=== PATIENT | female | born 1965 | race African-American/Black ===

== ENCOUNTER 2018-06-29 16:42 | Inpatient (IN) | payer OTHER ==
--- NOTE | 2018-06-29 17:36 | PDOC ---
History of Present Illness - General Chief Complaint: Pain, Acute Stated Complaint: KNEE PAIN Time Seen by Provider: 06/29/18 17:36 - History of Present Illness Initial Comments: 52 yo F w a pmh of cholecystectomy, lap band, gastric bypass, malabsorption presents with L sided knee pain s/p tripping and falling down 4 stairs. She states she was able to walk normally up until yesterday when she tripped and fell. Her pain is the worst in the Medial aspect of the Left knee. She believes she everted her knee. She denies hitting her head or any LOC. Denies recent fevers, chills, infections. PCP: Shanthi Dietrich Social Hx: smokes .5 PPD, drinks beer recreationally, denies illicit substance use. Allergies: Celecoxib, vicodan Past History - Past Medical History Allergies/Adverse Reactions: Allergies Allergy/AdvReac Type Severity Reaction Status Date / Time celecoxib [From Celebrex] Allergy Unknown Verified 06/29/18 17:05 vicodan Allergy Unknown Uncoded 06/29/18 17:05 Home Medications: Ambulatory Orders Boniva PO 09/15/11 Citracal Plus Tablet 1 tab PO TID 09/15/11 Ferrex 150 Forte Capsule 1 tab PO DAILY 09/15/11 Motrin 400 mg PO BID PRN 09/15/11 Motrin 600 mg PO DAILY 09/15/11 Multivitamin 1 tab PO DAILY 09/15/11 Vitamin C 500 mg PO DAILY 09/15/11 Vitamin D3 1,000 mg PO DAILY 09/15/11 COPD: No CHF: No - Surgical History Abdominal Surgery: Yes (gastric lap band) Cholecystectomy: Yes - Suicide/Smoking/Psychosocial Hx Smoking History: Never smoked Have you smoked in the past 12 months: No Information on smoking cessation initiated: No Hx Alcohol Use: No Drug/Substance Use Hx: No Substance Use Type: None Review of Systems - Review of Systems Comments:: CONSTITUTIONAL: Absent: fever, no chills, no fatigue EYES: Absent: visual changes ENT: Absent: ear pain, no sore throat CARDIOVASCULAR: Absent: chest pain, no palpitations RESPIRATORY: Absent: cough, no SOB GI: Absent: abdominal pain, no nausea, no vomiting, no constipation, no diarrhea GENITOURINARY: Absent: dysuria, no frequency, no hematuria MUSKULOSKELETAL: Present: Arthralgia Absent: back pain, no myalgia SKIN: Absent: rash NEURO: Absent: headache *Physical Exam - Vital Signs Last Vital Signs Temp Pulse Resp BP Pulse Ox 98.0 F 90 16 114/62 100 06/29/18 16:42 06/29/18 16:42 06/29/18 16:42 06/29/18 16:42 06/29/18 16:42 - Physical Exam Comments: GENERAL: Well-appearing, well-nourished. No apparent distress. HEENT: Normocephalic, atraumatic. PERRL, EOM intact. CARDIOVASCULAR: Normal S1, S2. Regular rate and rhythm. PULMONARY: Clear to auscultation bilaterally. ABDOMEN: Soft, non-distended, non-tender. EXTREMITIES: There is significant TTP on the medial aspect of the Left knee. Normal sensation. 2+ pulses in L ankle. Normal ROM in other 3 extremities. No gross deformities. SKIN: Warm, dry. No rash NEUROLOGICAL: No focal neurological deficits. Medical Decision Making - Medical Decision Making 52 yo F w a pmh of cholecystectomy, lap band, gastric bypass, malabsorption presents with L sided knee pain s/p tripping and falling down 4 stairs. She has significant Medial L sided knee pain. DD includes but not limited to: Knee fx, ligament injury, septic knee, other injury Plan: X-ray, anaglesia, knee immobilizer, crutches, re-assess, Patient is not able to ambulate and in significant Knee pain. We will admit the patient for inability to ambulate and pain control. *DC/Admit/Observation/Transfer Diagnosis at time of Disposition: Inability to ambulate due to knee, Knee injury - Discharge Dispostion Decision to Admit order: Yes - Referrals Referrals: Shanthi Dietrich MD [Primary Care Provider] - - Patient Instructions - Post Discharge Activity
[2018-06-29] MEDS ORDERED: IBUPROFEN 600 MG TABLET (FP) PO ONE ×2 (17:51→17:59)
[2018-06-29] MEDS ORDERED: MAG HYDROX/AL HYDROX/SIMETH 30 ML UNIT-DOSE CUP PO ONE (22:03)
[2018-06-29] MEDS ORDERED: FAMOTIDINE 20 MG/50 ML IVPB 20 MG/50 ML MG IVPB ONE ×2 (22:03→22:33)
[2018-06-29] MEDS ORDERED: SODIUM CHLORIDE 0.9% 500 ML INFUS.BAG IV ONE (22:04)
[2018-06-29] MEDS ORDERED: MAG HYDROX/AL HYDROX/SIMETH 30 ML UNIT-DOSE CUP ONE (22:33)
--- NOTE | 2018-06-29 22:59 | PDOC ---
Attending Attestation - Resident Resident Name: ElisaSantino - ED Attending Attestation I have performed the following: I have examined & evaluated the patient, The case was reviewed & discussed with the resident, I agree w/resident's findings & plan, Exceptions are as noted - Physicial Exam PE: 06/29/18 22:57 awake alert head atraumatic. lungs clear bilaterally heart rrr no mrg. abd soft nt nd. ext wwp lower ext left knee ttp posterioirly. pt able to lift to resistance no tenderness over patella, pain with flexion extension. ankle nt from hip nt from. - Medical Decision Making 06/29/18 22:59 differerntial ligmentous injury, fx. plan xray pain control pt unable to walk. lives alone wiht son who is suffering form hernia, cant help lift. unable to use crutches will require admission because cant walk, pt assessment. possible ct knee /ro occult fracgure. <Nanda Phan - Last Filed: 06/29/18 22:56> - HPI HPI: 06/29/18 23:00 The patient is a 52 year old female with a significant past medical history of osteoporosis and anemia who presents to the ED s/p fall. Patient states she fell down 4 stairs yesterday and felt like she twisted her left knee. Patient complaints of left knee pain that is worsened with movement. Patient is able to ambulate with pain. Denies head injury. Denies loss of consciousness. Denies focal numbness/weakness /tingling. Denies fever or chills. Denies any other symptoms. <Kadie Nova - Last Filed: 06/29/18 23:00> Attestations - Attestations 06/29/18 23:00 Documentation prepared by Kadie Nova, acting as medical payment poster for Nanda Phan MD. <Kadie Nova - Last Filed: 06/29/18 23:00>
[2018-06-29 23:29] LABS: BASO % 0.2 % (0-2.0); EOS % 0.2 % (0-4.5); HEMATOCRIT 23.4 % (32.4-45.2); LYMPH % 8.7 % (8-40); MCH 21.7 pg (25.7-33.7); MEAN CELL VOLUME 72.3 fl (80-96); MEAN PLT VOLUME 8.3 fl (7.5-11.1); MONO % 6.6 % (3.8-10.2); NEUT % 84.3 % (42.8-82.8); PLATELET COUNT 374 K/MM3 (134-434); RBC 3.24 M/mm3 (3.60-5.2); RDW 21.5 % (11.6-15.6); WHITE BLOOD COUNT 8.4 K/mm3 (4.0-10.0)
[2018-06-29] MEDS ORDERED: ACETAMINOPHEN 325 MG TABLET (FP) PO PRN (23:58)
[2018-06-30 00:54] LABS: ALBUMIN 2.6 g/dl (3.4-5.0); ALK PHOS 96 U/L (45-117); ANION GAP 7 MMOL/L (8-16); BILIRUBIN,TOTAL 0.6 mg/dL (0.2-1); BLOOD UREA NITROGEN 9 mg/dL (7-18); CHLORIDE 112 mmol/L (98-107); CO2 24 mmol/L (21-32); CREATININE 0.4 mg/dL (0.55-1.3); GLUCOSE,RANDOM 86 mg/dL (74-106); POTASSIUM 3.8 mmol/L (3.5-5.1); SGOT/AST 24 U/L (15-37); SGPT/ALT 21 U/L (13-61); SODIUM 143 mmol/L (136-145); TOT PROT 6.1 g/dl (6.4-8.2)
[2018-06-30 01:52] LABS: CALCIUM 6.9 mg/dL (8.5-10.1)
[2018-06-30 03:02] LABS: ANISOCYTOSIS 3+; MACROCYTOSIS 0; OVALOCYTE 1+; PLATELET ESTIMATE NORMAL
[2018-06-30 05:42] VITALS: BMI 34.4
[2018-06-30 08:03] LABS: HEMATOCRIT 24.2 % (32.4-45.2); HEMOGLOBIN 7.1 GM/dL (10.7-15.3); MCH 21.8 pg (25.7-33.7); MCHC 29.5 g/dl (32.0-36.0); MEAN CELL VOLUME 73.8 fl (80-96); MEAN PLT VOLUME 8.9 fl (7.5-11.1); PLATELET COUNT 329 K/MM3 (134-434); RBC 3.28 M/mm3 (3.60-5.2); RDW 22.1 % (11.6-15.6); WHITE BLOOD COUNT 7.6 K/mm3 (4.0-10.0)
[2018-06-30 09:17] LABS: ALBUMIN 2.4 g/dl (3.4-5.0); ALK PHOS 92 U/L (45-117); ANION GAP 8 MMOL/L (8-16); BILIRUBIN,TOTAL 0.5 mg/dL (0.2-1); BLOOD UREA NITROGEN 8 mg/dL (7-18); CHLORIDE 112 mmol/L (98-107); CO2 23 mmol/L (21-32); CREATININE 0.4 mg/dL (0.55-1.3); GLUCOSE,RANDOM 63 mg/dL (74-106); POTASSIUM 3.4 mmol/L (3.5-5.1); SGOT/AST 16 U/L (15-37); SGPT/ALT 19 U/L (13-61); SODIUM 143 mmol/L (136-145); TOT PROT 5.7 g/dl (6.4-8.2)
--- NOTE | 2018-06-30 09:17 | EKG ---
Test Reason : Blood Pressure : / mmHG Vent. Rate : 072 BPM Atrial Rate : 072 BPM P-R Int : 188 ms QRS Dur : 106 ms QT Int : 424 ms P-R-T Axes : 054 016 027 degrees QTc Int : 464 ms NORMAL SINUS RHYTHM CANNOT RULE OUT ANTERIOR INFARCT , AGE UNDETERMINED ABNORMAL ECG NO PREVIOUS ECGS AVAILABLE Confirmed by OLLIE NGUYEN MD ([id number]) on 06/30/2018 9:16:38 AM Referred By: Confirmed By:OLLIE NGUYEN MD
--- NOTE | 2018-06-30 09:20 | HP ---
Admitting History and Physical - Primary Care Physician PCP: Mary Martin S - Admission Chief Complaint: L knee pain unable to walk History of Present Illness: 52 yo F w a pmh of cholecystectomy, lap band, gastric bypass, malabsorption presents with L sided knee pain s/p tripping and falling down 4 stairs. She states she was able to walk normally up until yesterday when she tripped and fell at work on stairs. Her pain is the worst in the Medial aspect of the Left knee. She believes she everted her knee. She denies hitting her head or any LOC. Denies recent fevers, chills, infections. PCP: Shanthi Dietrich History Source: Patient Limitations to Obtaining History: No Limitations - Past Medical History Heme/Onc: Yes: Anemia - Smoking History Smoking history: Never smoked Have you smoked in the past 12 months: No - Alcohol/Substance Use Hx Alcohol Use: No History of Substance Use: reports: None - Social History Usual Living Arrangement: Yes: Alone ADL: Independent History of Recent Travel: No Home Medications - Allergies Allergies/Adverse Reactions: Allergies Allergy/AdvReac Type Severity Reaction Status Date / Time celecoxib [From Celebrex] Allergy Unknown Verified 06/29/18 17:05 vicodan Allergy Unknown Uncoded 06/29/18 17:05 - Home Medications Home Medications: Ambulatory Orders Citracal Plus Tablet 1 tab PO TID 09/15/11 Ferrex 150 Forte Capsule 1 tab PO DAILY 09/15/11 Motrin 400 mg PO BID PRN 09/15/11 Motrin 600 mg PO DAILY 09/15/11 Multivitamin 1 tab PO DAILY 09/15/11 Vitamin C 500 mg PO DAILY 09/15/11 Vitamin D3 1,000 mg PO DAILY 09/15/11 Family Disease History - Family Disease History Family History: Unremarkable Review of Systems - Review of Systems Constitutional: denies: Chills, Fever Eyes: denies: Blind Spots, Blurred Vision, Double Vision HENT: denies: Ear Pain, Epistaxis Neck: denies: Stiffness, Tenderness Cardiovascular: denies: Chest Pain, Shortness of Breath Respiratory: denies: Cough, SOB Gastrointestinal: denies: Abdominal Pain, Constipation, Diarrhea, Rectal Bleeding, Vomiting Genitourinary: denies: Dysuria, Flank Pain Musculoskeletal: reports: Joint Pain (L knee). denies: Back Pain Integumentary: denies: Bruising, Eczema Neurological: denies: Change in LOC, Change in Speech, Confusion, Dizziness, Headache, Seizure, Syncope Hematology/Lymphatic: denies: Easily Bruised, Excessive Bleeding, Swollen Glands Psychiatric: denies: Altered Sleep Pattern, Anxiety, Depression, Suicidal Physical Examination Vital Signs: Vital Signs Temperature 98.3 F 06/30/18 06:00 Pulse Rate 76 06/30/18 06:00 Respiratory Rate 18 06/30/18 06:00 Blood Pressure 119/61 06/30/18 06:00 O2 Sat by Pulse Oximetry (%) 100 06/29/18 16:42 Constitutional: Yes: No Distress, Calm Eyes: Yes: Conjunctiva Clear HENT: Yes: Atraumatic Neck: Yes: Supple Cardiovascular: Yes: Regular Rate and Rhythm Respiratory: Yes: CTA Bilaterally Gastrointestinal: Yes: Soft. No: Distention, Tenderness Renal/: No: CVA Tenderness - Left, CVA Tenderness - Right Musculoskeletal: Yes: Joint Stiffness (L knee pain). No: Back Pain, Joint Swelling Extremities: No: Cold, Cool Edema: No Integumentary: No: Rash, Venous Stasis Changes Neurological: Yes: WNL, Alert, Oriented ...Motor Strength: WNL Psychiatric: Yes: WNL, Alert, Oriented. No: Agitated, Suicidal Ideation Labs: CBC, BMP 06/30/18 06:50 06/30/18 06:50 Imaging - Results Other: Report Reviewed Assessment/Plan 52 yo F w a pmh of cholecystectomy, lap band, gastric bypass, malabsorption presents with L sided knee pain s/p tripping and falling down 4 stairs. Xrays done, unable to r/o fracture per prelim report will check CT or MRI ortho eval anemia> d/w pt and dr Dietrich: pt has h/o anemia for years, in 2016 Hg 9 was supposed to have [facility] [employer] and GI w/u but pt did not go for them and did not see dr Patel since 2016 GI and heme eval DVT PFX pain meds prn falls PFX d/w pt do not get OOB alone call for help if needed; do not stap on LLE until cleared by ortho d/w pt and staff d/w pt's PCP dr Vikram Dietrich
--- NOTE | 2018-06-30 09:39 | CONSULT ---
Consult - text type - Consultation Consultation Note: FULL CONSULT DICTATED IMP: INTERNAL DERANGEMENT RIGHT KNEE PLAN: KNEE IMMOBILIZER, MRI ORDERED
--- NOTE | 2018-06-30 10:06 | CONS ---
DATE OF CONSULTATION: 06/30/2018 ORTHOPEDIC CONSULTATION/[facility] Patient is a 52-year-old female status post fall down stairs a day and a half ago, presented to ER yesterday complaining of increased pain in the left knee with inability to ambulate. Patient was admitted to the emergency room as the pain was too great for her to take care of herself and therefore needed to be admitted. PHYSICAL EXAMINATION: Patient has significant pain and swelling to her left knee. Difficult to examine due to the large size of the knee. Grossly, she is intact varus, valgus, and anterior, posterior. Cannot straight leg raise. I cannot palpate the inferior and superior aspect of the patella to ascertain quadriceps strength. I tried putting her on her side, tried to extend her knee, very uncooperative with the exam. She would not extend her knee. Calf was soft, nontender. Good motion of hip, ankle, and toes. X-ray shows no fracture. Patient . IMPRESSION: Internal derangement of left knee, possible extensor tendon rupture. PLAN: MRI and knee immobilizer. I will see her back after the MRI. ROSALIO PATEL M.D. [id number]
[2018-06-30] MEDS: CHOLECALCIFEROL (VITAMIN D3) 1,000 UNIT TABLET (FP) PO SCH (12:23)
[2018-06-30] MEDS: ASCORBIC ACID 500 MG TABLET (FP) PO SCH (12:23)
[2018-06-30] MEDS: MULTIVITAMINS (DAILY MVI) TABLET (FP) PO SCH (12:23)
[2018-06-30] MEDS: PANTOPRAZOLE 20 MG TABLET (FP) PO SCH (12:23)
[2018-06-30] MEDS: CALCIUM 500MG/VIT-D 200 UNITS COMBO TABLET (FP) PO SCH ×2 (15:00→21:20)
[2018-06-30] MEDS ORDERED: IRON POLYSACCHARIDES 150 MG CAPSULE PO SCH (16:00)
--- NOTE | 2018-06-30 16:06 | CON.GI ---
Consult Consult Specialty:: GI: Dr. Pastor for Dr. Valera Referred by:: Dr. Mary Martin Reason for Consultation:: Anemia - History of Present Illness Chief Complaint: I fell down stairs History of Present Illness: 52F admitted through [facility] S/P fall down stairs while at work this past tuesday. She denied lighheadedness/dizziness and states that she lost her footing. In the process, she hurt her left knee, knee pain persisted and she called EMS and was brought to the ER. She is being evaluated by ortho and has a left leg brace in place. She is scheduled for an MRI of the lower extremity. Asked to evaluate for anemia. ms. Brooks explains that she was told of anemia multiple years prior, predating her gastric bypass. She last saw her PMD Dr. Jonas 2 years ago, was supposed to have outpatient blood work but never did. She does not take iron supplementation s/p bypass and infrequently takes a multivitamin. She has been taking 6 motrin tablets daily for about a month due to knee pain. She denies unintentional weight loss, rectal bleeding, melena, abdominal pain. She is not compliant with a gastric bypass diet. She has not had a menstrual period in many years. She may have had an upper endoscopy multiple years ago and thinks she may have had a colonoscopy multiple years ago as well. She reports loose bowel movements chronically. There is no family history of colorectal cancer or other GI malignancy. - History Source History Provided By: Patient, Medical Record Limitations to Obtaining History: No Limitations - Past Medical History Heme/Onc: Yes: Anemia Additional Medical History: Obesity, venous insufficiency b/l LE - Past Surgical History Past Surgical History: Yes: Bariatric Surgery (Rodney-en-y gastric bypass, lap band), Cholecystectomy (Open) - Alcohol/Substance Use Hx Alcohol Use: No - Smoking History Smoking history: Never smoked Have you smoked in the past 12 months: No - Social History Usual Living Arrangement: With Child ADL: Independent Occupation: Direct service provider for developmentally challeneged Place of : [employer] History of Recent Travel: No Home Medications - Allergies Allergies/Adverse Reactions: Allergies Allergy/AdvReac Type Severity Reaction Status Date / Time celecoxib [From Celebrex] Allergy Unknown Verified 06/29/18 17:05 vicodan Allergy Unknown Uncoded 06/29/18 17:05 - Home Medications Home Medications: Ambulatory Orders Citracal Plus Tablet 1 tab PO TID 09/15/11 Ferrex 150 Forte Capsule 1 tab PO DAILY 09/15/11 Motrin 400 mg PO BID PRN 09/15/11 Motrin 600 mg PO DAILY 09/15/11 Multivitamin 1 tab PO DAILY 09/15/11 Vitamin C 500 mg PO DAILY 09/15/11 Vitamin D3 1,000 mg PO DAILY 09/15/11 Family Disease History - Family Disease History Family Disease History: Other: Father (: 51: Diabetic complications and PE) , Mother (: 72: complications fro URI), Brother (2, healthy), Sister (4, healthy), Son (1, healthy), Daughter (None) Other Family History: No family history of colorectal cancer or other GI malignancy Review of Systems - Review of Systems Constitutional: denies: Fever Cardiovascular: denies: Chest Pain Respiratory: denies: SOB Gastrointestinal: denies: Abdominal Pain, Melena Physical Exam-GI Vital Signs: Vital Signs Temperature 99.3 F 06/30/18 15:48 Pulse Rate 94 H 06/30/18 15:48 Respiratory Rate 18 06/30/18 15:48 Blood Pressure 115/40 L 06/30/18 15:48 O2 Sat by Pulse Oximetry (%) 100 06/29/18 16:42 Constitutional: Yes: Calm Eyes: No: Sclera Icterus Cardiovascular: Yes: Regular Rate and Rhythm, Murmur Respiratory: Yes: CTA Bilaterally Gastrointestinal Inspection: Yes: Scars (Oblique RUQ scar, + mid abd scar, + palpable lap band port in left paramedian abdomen) ...Auscultate: Yes: Normoactive Bowel Sounds ...Palpate: Yes: Soft. No: Hepatomegaly, Splenomegaly, Tenderness ...Rectal Exam: Yes: Other (No extermnal lesions, no masses, castro stool in rectal vault, guaiac negative) Edema: No (l stasis changes) Neurological: Yes: Alert Labs: CBC, BMP 06/30/18 06:50 06/30/18 06:50 Hepatic Panel Total Bilirubin 0.5 mg/dL (0.2-1) 06/30/18 06:50 AST 16 U/L (15-37) 06/30/18 06:50 ALT 19 U/L (13-61) 06/30/18 06:50 Alkaline Phosphatase 92 U/L (45-117) 06/30/18 06:50 Albumin 2.4 g/dl (3.4-5.0) L 06/30/18 06:50 Problem List - Problems (1) Anemia Assessment/Plan: Anemia: Microcytic Guaiac negative on exam without an overt bleeding history Suspect secondary to her gastric bypass and non compliance with iron supplemntation post bypass. We discussed options: discussed EGD/Colonoscopy while inpatient for tuesday to exclude intraluminal pathology that can contribute to anemia such as PUD, bleeding blood vessels, polyps, cancers of the intestinal tract such as colon cancer. We discussed potential risks of the procedure like but not limited to bleeding, perforation requiring surgery to repair, infection, sedation medication effects all of which could be potentially life threatening. She stated that she would like to wait and pursue this work-up when her acute issues are resolved. She is on iron now. consider PRBC transfusion, heme eval. Check iron studies. ? need for IV iron given bypass anatomy. I gave her my card for outpatient follow-up. Advised avoidance of NSAIDS. Continue Protonix 20mg once daily for now. Code(s): D64.9 - ANEMIA, UNSPECIFIED Qualifiers: Anemia type: unspecified type Qualified Code(s): D64.9 - Anemia, unspecified
--- NOTE | 2018-06-30 19:32 | CONSULT ---
Consult - text type - Consultation Consultation Note: 52F admitted S/P fall down stairs while at work this past tuesday. She denied lighheadedness/dizziness and states that she lost her footing. In the process, she hurt her left knee, knee pain persisted and she called EMS and was brought to the ER. She is being evaluated by ortho and has a left leg brace in place. She is scheduled for an MRI of the lower extremity. Asked to evaluate for anemia. ms. Brooks explains that she was told of anemia multiple years prior, predating her gastric bypass. s/p bypass. She denies unintentional weight loss, rectal bleeding, melena, abdominal pain. She may have had an upper endoscopy multiple years ago and thinks she may have had a colonoscopy multiple years ago as well. - History Source History Provided By: Patient, Medical Record - Past Medical History Heme/Onc: Yes: Anemia Additional Medical History: Obesity, venous insufficiency b/l LE - Past Surgical History Past Surgical History: Yes: Bariatric Surgery (Rodney-en-y gastric bypass, lap band), Cholecystectomy (Open) - Smoking History Smoking history: Never smoked - Allergies Allergies/Adverse Reactions: Allergies Allergy/AdvReac Type Severity Reaction Status Date / Time celecoxib [From Celebrex] Allergy Unknown Verified 06/29/18 17:05 vicodan Allergy Unknown Uncoded 06/29/18 17:05 - Home Medications Home Medications: Ambulatory Orders Citracal Plus Tablet 1 tab PO TID 09/15/11 Ferrex 150 Forte Capsule 1 tab PO DAILY 09/15/11 Motrin 400 mg PO BID PRN 09/15/11 Motrin 600 mg PO DAILY 09/15/11 Multivitamin 1 tab PO DAILY 09/15/11 Vitamin C 500 mg PO DAILY 09/15/11 Vitamin D3 1,000 mg PO DAILY 09/15/11 Family Disease History - Family Disease History Family Disease History: Other: Father (: 51: Diabetic complications and PE) , Mother (: 72: complications fro URI), Brother (2, healthy), Sister (4, healthy), Son (1, healthy), Daughter (None) Other Family History: No family history of colorectal cancer or other GI malignancy Vital Signs: Vital Signs Temperature 99.3 F 06/30/18 15:48 Pulse Rate 94 H 06/30/18 15:48 Respiratory Rate 18 06/30/18 15:48 Blood Pressure 115/40 L 06/30/18 15:48 O2 Sat by Pulse Oximetry (%) 100 06/29/18 16:42 Constitutional: Yes: Calm Eyes: No: Sclera Icterus Cardiovascular: Yes: Regular Rate and Rhythm, Murmur Respiratory: Yes: CTA Bilaterally Gastrointestinal Inspection: Yes: Scars (Oblique RUQ scar, + mid abd scar, + palpable lap band port in left paramedian abdomen) ...Auscultate: Yes: Normoactive Bowel Sounds Neurological: Yes: Alert Labs: Abnormal Lab Results 06/29/18 06/29/18 06/30/18 23:15 23:15 06:50 RBC 3.24 L 3.28 L Hgb 7.0 L 7.1 L Hct 23.4 L 24.2 L MCV 72.3 L 73.8 L MCH 21.7 L 21.8 L MCHC 30.0 L 29.5 L RDW 21.5 H 22.1 H Neutrophils % 84.3 H Potassium Chloride 112 H Anion Gap 7 L Creatinine 0.4 L Random Glucose Calcium 6.9 L* Total Protein 6.1 L Albumin 2.6 L 06/30/18 06:50 RBC Hgb Hct MCV MCH MCHC RDW Neutrophils % Potassium 3.4 L Chloride 112 H Anion Gap Creatinine 0.4 L Random Glucose 63 L Calcium 7.0 L Total Protein 5.7 L Albumin 2.4 L Active Medications Generic Name Dose Route Start Last Admin Trade Name Freq PRN Reason Stop Dose Admin Acetaminophen 650 mg 06/29/18 23:58 Tylenol - PO Q6H PRN PAIN 1-3 Ascorbic Acid 500 mg 06/30/18 10:00 06/30/18 12:23 Vitamin C - PO 500 mg DAILY [facility] Administration Calcium Carbonate/Cholecalciferol 1 tab 06/30/18 14:00 06/30/18 15:00 Os-Elio 500+D - PO 1 tab TID CEDRIC Administration Cholecalciferol 1,000 unit 06/30/18 11:15 06/30/18 12:23 Vitamin D3 - PO 1,000 unit DAILY [facility]RIC Administration Heparin Sodium (Porcine) 5,000 unit 06/30/18 22:00 Heparin - SQ BID CEDRIC Ibuprofen 400 mg 06/30/18 09:19 Motrin - PO BID PRN NEED PAIN LEVEL Multivitamins/Minerals/Vitamin C 1 tab 06/30/18 10:00 06/30/18 12:23 Tab-A-Vit - PO 1 tab DAILY [facility]RIC Administration Pantoprazole Sodium 20 mg 06/30/18 11:15 06/30/18 12:23 Protonix - PO 20 mg DAILY [facility] Administration Polysaccharide Iron Complex 150 mg 06/30/18 16:00 06/30/18 17:40 Niferex-150 - PO Not Given DAILY CEDRIC A/P 52 y/o with h/o obesity, s/p gastric bypass in 2000, s/p lap band Microcytic anemia h/o gastric bypass supect poor iron absorption ? losses check iron studies/B12/folate/TSH/fT4 will dose iv iron --poor absorption given gastric bypass. discussed rare anaphylactic reactins with iv iron will need gi w/u will need fresh work wrapper layer f/u as outpatient. reports regular normal periods but needs screening will need screening mammogram discussed these recommendations with patient in great detail and urged her to follow up My contact no. given
[2018-06-30] MEDS: HEPARIN NA (PORCINE) 5,000 UNITS/ML 1ML VIAL SQ SCH (21:20)
[2018-07-01] MEDS: CALCIUM 500MG/VIT-D 200 UNITS COMBO TABLET (FP) PO SCH ×3 (05:31→21:09)
[2018-07-01] MEDS: IBUPROFEN 400 MG TABLET (FP) PO PRN ×2 (05:36→17:07)
[2018-07-01 08:27] LABS: RETICULOCYTES 1.45 % (0.5-1.5)
[2018-07-01 08:28] LABS: BASO % 0.2 % (0-2.0); EOS % 0.6 % (0-4.5); HEMATOCRIT 23.7 % (32.4-45.2); HEMOGLOBIN 7.2 GM/dL (10.7-15.3); LYMPH % 12.6 % (8-40); MCH 21.7 pg (25.7-33.7); MCHC 30.2 g/dl (32.0-36.0); MEAN PLT VOLUME 9.2 fl (7.5-11.1); NEUT % 78.6 % (42.8-82.8); PLATELET COUNT 341 K/MM3 (134-434); RBC 3.29 M/mm3 (3.60-5.2); RDW 21.7 % (11.6-15.6); WHITE BLOOD COUNT 6.8 K/mm3 (4.0-10.0)
--- NOTE | 2018-07-01 08:45 | PN ---
Progress Note, Physician Chief Complaint: events noted no overt bleeding start IV Iron for anemia MRI knee pending - Current Medication List Current Medications: Active Medications Acetaminophen (Tylenol -) 650 mg PO Q6H PRN PRN Reason: PAIN 1-3 Ascorbic Acid (Vitamin C -) 500 mg PO DAILY [facility] Last Admin: 06/30/18 12:23 Dose: 500 mg Calcium Carbonate/Cholecalciferol (Os-Elio 500+D -) 1 tab PO TID [facility] Last Admin: 07/01/18 05:31 Dose: 1 tab Cholecalciferol (Vitamin D3 -) 1,000 unit PO DAILY [facility] Last Admin: 06/30/18 12:23 Dose: 1,000 unit Heparin Sodium (Porcine) (Heparin -) 5,000 unit SQ BID [facility] Last Admin: 06/30/18 21:20 Dose: 5,000 unit Iron Sucrose 200 mg/ Sodium (Chloride) 100 mls @ 100 mls/hr IVPB ONCE ONE Stop: 07/01/18 10:59 Ibuprofen (Motrin -) 400 mg PO Q12H PRN PRN Reason: PAIN LEVEL 4 - 6 Last Admin: 07/01/18 05:36 Dose: 400 mg Multivitamins/Minerals/Vitamin C (Tab-A-Vit -) 1 tab PO DAILY [facility] Last Admin: 06/30/18 12:23 Dose: 1 tab Pantoprazole Sodium (Protonix -) 20 mg PO DAILY [facility] Last Admin: 06/30/18 12:23 Dose: 20 mg - Objective Vital Signs: Vital Signs Temperature 99.2 F 07/01/18 06:00 Pulse Rate 83 07/01/18 06:00 Respiratory Rate 18 06/30/18 23:38 Blood Pressure 119/60 07/01/18 06:00 O2 Sat by Pulse Oximetry (%) 95 06/30/18 22:00 Constitutional: Yes: No Distress, Calm Eyes: Yes: Conjunctiva Clear HENT: Yes: Atraumatic Neck: Yes: Supple Cardiovascular: Yes: Regular Rate and Rhythm Respiratory: Yes: CTA Bilaterally Gastrointestinal: Yes: Soft. No: Distention Genitourinary: No: CVA Tenderness - Left, CVA Tenderness - Right Extremities: Yes: Other (L knee pain) Integumentary: No: Rash, Venous Stasis Changes Neurological: Yes: WNL, Alert, Oriented ...Motor Strength: WNL Psychiatric: Yes: WNL, Alert, Oriented. No: Agitated, Suicidal Ideation - ....Imaging Other: Report Reviewed Assessment/Plan 52 yo F w a pmh of cholecystectomy, lap band, gastric bypass, malabsorption presents with L sided knee pain s/p tripping and falling down 4 stairs. Xrays done, unable to r/o fracture per prelim report will check CT or MRI ortho eval anemia> d/w pt and dr Dietrich: pt has h/o anemia for years, in 2015 Hg 9 was supposed to have [facility] ASSOC[facility] and GI w/u but pt did not go for them and did not see dr Dietrich since 2016 GI and heme eval DVT PFX pain meds prn falls PFX d/w pt do not get OOB alone call for help if needed; do not stap on LLE until cleared by ortho d/w pt and staff d/w pt's PCP dr Vikram Dietrich
[2018-07-01 08:48] LABS: ALBUMIN 2.4 g/dl (3.4-5.0); ALK PHOS 96 U/L (45-117); ANION GAP 7 MMOL/L (8-16); BILIRUBIN,TOTAL 0.7 mg/dL (0.2-1); BLOOD UREA NITROGEN 6 mg/dL (7-18); CHLORIDE 111 mmol/L (98-107); CO2 26 mmol/L (21-32); CREATININE 0.4 mg/dL (0.55-1.3); GLUCOSE,RANDOM 72 mg/dL (74-106); LDH 289 U/L (84-246); POTASSIUM 3.8 mmol/L (3.5-5.1); SGOT/AST 14 U/L (15-37); SGPT/ALT 19 U/L (13-61); SODIUM 143 mmol/L (136-145); TOT PROT 5.7 g/dl (6.4-8.2)
[2018-07-01] MEDS ORDERED: IRON SUCROSE INJECTION 200 MG in SODIUM CHLORIDE 90 ML IVPB ONE (10:00)
[2018-07-01] MEDS ORDERED: PT OWN MED DRAWER 7, Y5N ONE ×2 (10:44→17:26)
[2018-07-01] MEDS: ASCORBIC ACID 500 MG TABLET (FP) PO SCH (10:54)
[2018-07-01] MEDS: MULTIVITAMINS (DAILY MVI) TABLET (FP) PO SCH (10:54)
[2018-07-01] MEDS: HEPARIN NA (PORCINE) 5,000 UNITS/ML 1ML VIAL SQ SCH ×2 (10:54→21:09)
[2018-07-01] MEDS: PANTOPRAZOLE 20 MG TABLET (FP) PO SCH (10:54)
[2018-07-01] MEDS: CHOLECALCIFEROL (VITAMIN D3) 1,000 UNIT TABLET (FP) PO SCH (10:54)
[2018-07-02] MEDS: CALCIUM 500MG/VIT-D 200 UNITS COMBO TABLET (FP) PO SCH ×3 (05:40→21:20)
[2018-07-02 08:33] LABS: BASO % 0.6 % (0-2.0); EOS % 1.4 % (0-4.5); HEMATOCRIT 25.8 % (32.4-45.2); HEMOGLOBIN 7.8 GM/dL (10.7-15.3); LYMPH % 16.6 % (8-40); MCH 21.8 pg (25.7-33.7); MCHC 30.1 g/dl (32.0-36.0); MEAN CELL VOLUME 72.5 fl (80-96); MEAN PLT VOLUME 9.1 fl (7.5-11.1); MONO % 8.7 % (3.8-10.2); NEUT % 72.7 % (42.8-82.8); PLATELET COUNT 352 K/MM3 (134-434); RBC 3.56 M/mm3 (3.60-5.2); RDW 22.3 % (11.6-15.6); WHITE BLOOD COUNT 5.7 K/mm3 (4.0-10.0)
--- NOTE | 2018-07-02 08:34 | PN ---
Progress Note, Physician Chief Complaint: in bed, no new c/o, still with L knee pain MRI d/w pt comminutive fracture - might need surgery will do preop eval and tune up last BM 3-4 days ago pt does not want any stools softeners - Current Medication List Current Medications: Active Medications Acetaminophen (Tylenol -) 650 mg PO Q6H PRN PRN Reason: PAIN 1-3 Ascorbic Acid (Vitamin C -) 500 mg PO DAILY [facility] Last Admin: 07/01/18 10:54 Dose: 500 mg Calcium Carbonate/Cholecalciferol (Os-Elio 500+D -) 1 tab PO TID [facility] Last Admin: 07/02/18 05:40 Dose: 1 tab Cholecalciferol (Vitamin D3 -) 1,000 unit PO DAILY [facility] Last Admin: 07/01/18 10:54 Dose: 1,000 unit Heparin Sodium (Porcine) (Heparin -) 5,000 unit SQ BID [facility] Last Admin: 07/01/18 21:09 Dose: 5,000 unit Ibuprofen (Motrin -) 400 mg PO Q12H PRN PRN Reason: PAIN LEVEL 4 - 6 Last Admin: 07/01/18 17:07 Dose: 400 mg Multivitamins/Minerals/Vitamin C (Tab-A-Vit -) 1 tab PO DAILY [facility] Last Admin: 07/01/18 10:54 Dose: 1 tab Pantoprazole Sodium (Protonix -) 20 mg PO DAILY [facility] Last Admin: 07/01/18 10:54 Dose: 20 mg - Objective Vital Signs: Vital Signs Temperature 97.9 F 07/02/18 06:00 Pulse Rate 79 07/02/18 06:00 Respiratory Rate 20 07/02/18 06:00 Blood Pressure 135/68 07/02/18 06:00 O2 Sat by Pulse Oximetry (%) 95 07/01/18 21:00 Constitutional: Yes: No Distress, Calm Eyes: Yes: Conjunctiva Clear HENT: Yes: Atraumatic Neck: Yes: Supple Cardiovascular: Yes: Regular Rate and Rhythm Respiratory: Yes: CTA Bilaterally Gastrointestinal: Yes: Soft. No: Distention Genitourinary: No: CVA Tenderness - Left, CVA Tenderness - Right Musculoskeletal: Yes: Joint Stiffness Extremities: No: Calf Tenderness, Cold, Cool Edema: No Integumentary: No: Rash, Venous Stasis Changes Neurological: Yes: WNL, Alert, Oriented ...Motor Strength: WNL Psychiatric: Yes: WNL, Alert, Oriented. No: Agitated, Suicidal Ideation - ....Imaging Other: Report Reviewed Assessment/Plan 52 yo F w a pmh of cholecystectomy, lap band, gastric bypass, malabsorption presents with L sided knee pain s/p tripping and falling down 4 stairs. MRI c/w L knee comminutive plateau fracture, further tx per ortho anemia> iv iron, might need transfusion - to have Hg >8 if will go for surgery abNL EKG: cardio eval in case she needs surgery GI and heme f/u will need PUBLIC AFFAIRS OFFICER outpt -w/u d/w pt DVT PFX pain meds prn falls PFX d/w pt do not get OOB alone call for help if needed; do not step on LLE until cleared by ortho d/w pt and staff
[2018-07-02] MEDS ORDERED: ACETAMINOPHEN 325 MG TABLET (FP) PO PRN (08:35)
[2018-07-02 08:57] LABS: ALBUMIN 2.6 g/dl (3.4-5.0); ALK PHOS 109 U/L (45-117); ANION GAP 8 MMOL/L (8-16); BILIRUBIN,TOTAL 0.4 mg/dL (0.2-1); BLOOD UREA NITROGEN 6 mg/dL (7-18); CALCIUM 7.4 mg/dL (8.5-10.1); CHLORIDE 110 mmol/L (98-107); CO2 25 mmol/L (21-32); CREATININE 0.4 mg/dL (0.55-1.3); GLUCOSE,RANDOM 71 mg/dL (74-106); POTASSIUM 3.7 mmol/L (3.5-5.1); SGOT/AST 18 U/L (15-37); SGPT/ALT 19 U/L (13-61); SODIUM 142 mmol/L (136-145); TOT PROT 6.4 g/dl (6.4-8.2)
[2018-07-02] MEDS ORDERED: MAG HYDROX/AL HYDROX/SIMETH 30 ML UNIT-DOSE CUP PO PRN (09:42)
[2018-07-02] MEDS: CHOLECALCIFEROL (VITAMIN D3) 1,000 UNIT TABLET (FP) PO SCH (10:28)
[2018-07-02] MEDS: HEPARIN NA (PORCINE) 5,000 UNITS/ML 1ML VIAL SQ SCH ×2 (10:28→21:20)
[2018-07-02] MEDS: PANTOPRAZOLE 20 MG TABLET (FP) PO SCH (10:28)
[2018-07-02] MEDS: MULTIVITAMINS (DAILY MVI) TABLET (FP) PO SCH (10:28)
[2018-07-02] MEDS: ASCORBIC ACID 500 MG TABLET (FP) PO SCH (10:28)
--- NOTE | 2018-07-02 10:45 | CON.CARD ---
Cardiology Consult (text) - Consultation Consultation Note: cc: knee pain hpi: 52 f hx gastric bypass, anemia here with knee pain. Pt had mechanical fall on stairs and hit knee and chest and face. Since then has knee pain and also mild achey cp across chest, mostly right side, worse with deep breaths/ coughs/palpation. No hx hrt dz, no anginal sxs. No sob palps dizzy loc pnd orthopnea le edema. Possible knee surgery planned for fracture. pmh: per hpi psh: per hpi social: no tob fam: no premature cad, scd ros: per hpi; no nvd fever abd pain gib hematuria dysuria muscle pain, vision changes meds: Home Medications Medication Instructions Recorded Citracal Plus Tablet 1 tab PO TID 09/15/11 Ferrex 150 Forte Capsule 1 tab PO DAILY 09/15/11 Motrin 400 mg PO BID PRN 09/15/11 Motrin 600 mg PO DAILY 09/15/11 Multivitamin 1 tab PO DAILY 09/15/11 Vitamin C 500 mg PO DAILY 09/15/11 Vitamin D3 1,000 mg PO DAILY 09/15/11 pe: Vital Signs Period Temp Pulse Resp BP Sys/Gandara Pulse Ox Last 24 Hr 97.9 F-99.2 F 79-86 18-20 115-145/64-75 95 nad no jvd rrr s1s2 no mrg cta bl nl eff aao3 no le e/c/c abd nt nd pos bs no jaundice diaphoresis pos dp pt no carotid bruits +chest wall tenderness Laboratory Last Values WBC 5.7 K/mm3 (4.0-10.0) 07/02/18 08:17 RBC 3.56 M/mm3 (3.60-5.2) L 07/02/18 08:17 Hgb 7.8 GM/dL (10.7-15.3) L 07/02/18 08:17 Hct 25.8 % (32.4-45.2) L 07/02/18 08:17 MCV 72.5 fl (80-96) L 07/02/18 08:17 MCH 21.8 pg (25.7-33.7) L 07/02/18 08:17 MCHC 30.1 g/dl (32.0-36.0) L 07/02/18 08:17 RDW 22.3 % (11.6-15.6) H 07/02/18 08:17 Plt Count 352 K/MM3 (134-434) 07/02/18 08:17 MPV 9.1 fl (7.5-11.1) 07/02/18 08:17 Absolute Neuts (auto) 4.1 K/mm3 (1.5-8.0) 07/02/18 08:17 Neutrophils % 72.7 % (42.8-82.8) 07/02/18 08:17 Lymphocytes % 16.6 % (8-40) D 07/02/18 08:17 Monocytes % 8.7 % (3.8-10.2) 07/02/18 08:17 Eosinophils % 1.4 % (0-4.5) D 07/02/18 08:17 Basophils % 0.6 % (0-2.0) 07/02/18 08:17 Nucleated RBC % 0 % (0-0) 07/02/18 08:17 Hypochromia 3+ 06/29/18 23:15 Platelet Estimate Normal 06/29/18 23:15 Polychromasia 0 06/29/18 23:15 Poikilocytosis 2+ 06/29/18 23:15 Anisocytosis 3+ 06/29/18 23:15 Microcytosis 3+ 06/29/18 23:15 Macrocytosis 0 06/29/18 23:15 Ovalocytes 1+ 06/29/18 23:15 ESR 40 mm/hr (0-30) H 07/01/18 07:30 Retic Count 1.45 % (0.5-1.5) 07/01/18 07:30 Sodium 142 mmol/L (136-145) 07/02/18 08:17 Potassium 3.7 mmol/L (3.5-5.1) 07/02/18 08:17 Chloride 110 mmol/L (98-107) H 07/02/18 08:17 Carbon Dioxide 25 mmol/L (21-32) 07/02/18 08:17 Anion Gap 8 MMOL/L (8-16) 07/02/18 08:17 BUN 6 mg/dL (7-18) L 07/02/18 08:17 Creatinine 0.4 mg/dL (0.55-1.3) L 07/02/18 08:17 Creat Clearance w eGFR > 60 (>60) 07/02/18 08:17 Random Glucose 71 mg/dL (74-106) L 07/02/18 08:17 Calcium 7.4 mg/dL (8.5-10.1) L 07/02/18 08:17 Ferritin 45.2 ng/ml (8-388) 07/01/18 07:30 Total Bilirubin 0.4 mg/dL (0.2-1) 07/02/18 08:17 AST 18 U/L (15-37) 07/02/18 08:17 ALT 19 U/L (13-61) 07/02/18 08:17 Alkaline Phosphatase 109 U/L (45-117) 07/02/18 08:17 LD Total 289 U/L (84-246) H 07/01/18 07:30 C-Reactive Protein 7.3 MG/DL (0.00-0.3) H 07/01/18 07:30 Total Protein 6.4 g/dl (6.4-8.2) 07/02/18 08:17 Albumin 2.6 g/dl (3.4-5.0) L 07/02/18 08:17 [id number] (%) Cancelled 07/01/18 07:30 Srbfb-[id number] (%) Cancelled 07/01/18 07:30 Beta Globulins (%) Cancelled 07/01/18 07:30 Gamma Globulins (%) Cancelled 07/01/18 07:30 M-Piter % Cancelled 07/01/18 07:30 Vitamin B12 457 pg/ml (193-986) 07/01/18 07:30 TSH 2.21 uIU/ml (0.358-3.74) 07/01/18 07:30 Free T4 1.67 ng/dl (0.76-1.46) H 07/01/18 07:30 Ref Test Comments Cancelled 07/01/18 07:30 ecg: sr, nl intervals, no ischemic changes cxr: clear lungs a/p: 52 f hx gastric bypass, anemia here with knee pain. anemia: -likely due to poor absorption s/p gastric bypass and pt not taking her supplements -gi, heme following cp: -MSK s/p fall, no suggestion of cardiac etiology knee injury, preop: -possible surgery per ortho -Pt has no cardiac symptoms, no unstable cardiac issues. She has low risk of periop cardiac events for the planned knee surgery.
--- NOTE | 2018-07-02 14:31 | PN ---
Progress Note (short form) - Note Progress Note: Pt seen and examined. Her LLE is in a knee immobilizer. She is comfortable. Xrays and MRI show a moderately depresse, comminuted left tibial plateau fracture. LLE NVI ` No severe swelling Imp Left lateral tibial plateau fracture, with some depression and comminution. Rec I will discuss with Dr Hamilton tomorrow/Tuesday, for definitive treatment plan : surgery vs conservative treatment NPO after midnight tonight in case surgery is indicated
[2018-07-02] MEDS: oxyCODONE HCL 5 MG TABLET PO PRN ×2 (19:16→23:25)
[2018-07-02 22:36] LABS: URINE APPEARANCE CLOUDY; URINE BILIRUBIN NEGATIVE (<2.0 mg/dL); URINE COLOR DKYELLOW; URINE GLUCOSE (UA) NEGATIVE (NEGATIVE); URINE KETONE NEGATIVE (NEGATIVE); URINE LEUK ESTERASE TRACE (NEGATIVE); URINE NITRITE NEGATIVE (NEGATIVE); URINE PROTEIN NEGATIVE (NEGATIVE); URINE UROBILINOGEN 4.0 E.U/dl mg/dL (0.2-1.0)
[2018-07-02 22:40] LABS: EPI CELLS MANY /HPF (FEW); URINE BACTERIA MODERATE /hpf (NONE SEEN); URINE MUCUS FEW
[2018-07-03 00:06] LABS: SERUM IRON SATURATION 5 % (15-55); TOTAL IRON BINDING CAPACITY 241 ug/dL (250-450); UIBC 228 ug/dL (131-425)
[2018-07-03] MEDS: CALCIUM 500MG/VIT-D 200 UNITS COMBO TABLET (FP) PO SCH ×3 (05:45→21:22)
[2018-07-03 07:55] LABS: BASO % 0.6 % (0-2.0); EOS % 2.1 % (0-4.5); HEMATOCRIT 24.1 % (32.4-45.2); HEMOGLOBIN 7.5 GM/dL (10.7-15.3); LYMPH % 23.2 % (8-40); MCH 22.5 pg (25.7-33.7); MCHC 31.1 g/dl (32.0-36.0); MEAN CELL VOLUME 72.4 fl (80-96); MEAN PLT VOLUME 9.1 fl (7.5-11.1); MONO % 10.7 % (3.8-10.2); NEUT % 63.4 % (42.8-82.8); PLATELET COUNT 338 K/MM3 (134-434); RBC 3.33 M/mm3 (3.60-5.2); WHITE BLOOD COUNT 5.4 K/mm3 (4.0-10.0)
[2018-07-03 08:17] LABS: ALBUMIN 2.4 g/dl (3.4-5.0); ALK PHOS 102 U/L (45-117); ANION GAP 5 MMOL/L (8-16); BILIRUBIN,TOTAL 0.6 mg/dL (0.2-1); BLOOD UREA NITROGEN 6 mg/dL (7-18); CALCIUM 7.4 mg/dL (8.5-10.1); CHLORIDE 108 mmol/L (98-107); CO2 28 mmol/L (21-32); CREATININE 0.4 mg/dL (0.55-1.3); GLUCOSE,RANDOM 72 mg/dL (74-106); POTASSIUM 3.9 mmol/L (3.5-5.1); SGOT/AST 14 U/L (15-37); SGPT/ALT 17 U/L (13-61); SODIUM 141 mmol/L (136-145); TOT PROT 6.1 g/dl (6.4-8.2)
[2018-07-03 08:18] LABS: INR 1.1 (0.83-1.09)
[2018-07-03 08:20] LABS: ACTIVATED PTT 27.6 SECONDS (25.2-36.5)
--- NOTE | 2018-07-03 09:02 | PN ---
Progress Note (short form) - Note Progress Note: Ortho Pt seen and examined s/p left lateral tibial plateau fx Selected Entries 07/03/18 06:00 Temperature 98.6 F Pulse Rate 80 Respiratory 20 Rate Blood Pressure 98/62 + swelling, + ttp laterally, decr rom secondary to pain nvi a/p Risks and benefits were d/w pt in detail OR today for left lateral tibial plateau ORIF surgical clearance NPO OR this afternoon d/w Dr. Hamilton
--- NOTE | 2018-07-03 09:22 | PN ---
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 GI bleed Hg 7.5 received IV Iron will transfuse 2 U PRBC before sx d/w pt possible risks and SE she agreed with transfusion CXR cardiomegaly - asymptomatic; cleared by cardio for surgery - Current Medication List Current Medications: Active Medications Acetaminophen (Tylenol -) 650 mg PO Q6H PRN PRN Reason: PAIN 1-3 Acetaminophen (Tylenol -) 325 mg PO BID PRN PRN Reason: PAIN LEVEL 7 - 10 Last Admin: 07/02/18 23:24 Dose: 325 mg Al Hydroxide/Mg Hydroxide (Mylanta Oral Suspension -) 30 ml PO Q6H PRN PRN Reason: DYSPEPSIA Ascorbic Acid (Vitamin C -) 500 mg PO DAILY [facility] Last Admin: 07/02/18 10:28 Dose: 500 mg Calcium Carbonate/Cholecalciferol (Os-Elio 500+D -) 1 tab PO TID [facility] Last Admin: 07/03/18 05:45 Dose: Not Given Cholecalciferol (Vitamin D3 -) 1,000 unit PO DAILY [facility] Last Admin: 07/02/18 10:28 Dose: 1,000 unit Heparin Sodium (Porcine) (Heparin -) 5,000 unit SQ BID [facility] Last Admin: 07/02/18 21:20 Dose: 5,000 unit Multivitamins/Minerals/Vitamin C (Tab-A-Vit -) 1 tab PO DAILY [facility] Last Admin: 07/02/18 10:28 Dose: 1 tab Oxycodone HCl (Roxicodone -) 5 mg PO BID PRN PRN Reason: PAIN LEVEL 7 - 10 Last Admin: 07/02/18 23:25 Dose: 5 mg Pantoprazole Sodium (Protonix -) 20 mg PO DAILY [facility] Last Admin: 07/02/18 10:28 Dose: 20 mg - Objective Vital Signs: Vital Signs Temperature 98.6 F 07/03/18 06:00 Pulse Rate 80 07/03/18 06:00 Respiratory Rate 20 07/03/18 06:00 Blood Pressure 98/62 07/03/18 06:00 O2 Sat by Pulse Oximetry (%) 95 07/02/18 21:00 Constitutional: Yes: No Distress, Calm Eyes: Yes: Conjunctiva Clear HENT: Yes: Atraumatic Neck: Yes: Supple Cardiovascular: Yes: Regular Rate and Rhythm Respiratory: Yes: CTA Bilaterally Gastrointestinal: Yes: Soft. No: Distention Genitourinary: No: CVA Tenderness - Left, CVA Tenderness - Right Musculoskeletal: No: Joint Swelling Extremities: No: Calf Tenderness, Cold, Cool, Cyanosis Edema: No Integumentary: No: Rash, Venous Stasis Changes Neurological: Yes: WNL, Alert, Oriented ...Motor Strength: WNL Psychiatric: Yes: WNL, Alert, Oriented. No: Agitated, Suicidal Ideation Labs: CBC, BMP 07/03/18 07:15 07/03/18 07:15 INR, PTT INR 1.10 (0.83-1.09) H 07/03/18 07:15 - ....Imaging Other: Report Reviewed Assessment/Plan 52 yo F w a pmh of cholecystectomy, lap band, gastric bypass, malabsorption presents with L sided knee pain s/p tripping and falling down 4 stairs at work MRI c/w L knee comminutive plateau fracture, further tx per ortho - surgery today - pt agreed anemia> iv iron, might need transfusion - to have Hg >8 if will go for surgery, transfuse 2 U PRBC now d/w pt and staff abNL EKG, cardiomegaly / CXR : seen by cardio and cleared for surgery NPO this am; hold sq heparin this am for knee surgery this afternoon no absolute CI for the proposed surgery GI and heme f/u and anemia - will need f/u with them outpt and also will need CLEANING PROFESSIONAL outpt -w/u d/w pt DVT PFX pain meds prn falls PFX d/w pt do not get OOB alone call for help if needed; do not step on LLE until cleared by ortho seen by telephonic nurse case manager for insurance and SNF planning d/w pt and staff; pt agreed with all the above.
[2018-07-03] MEDS: HEPARIN NA (PORCINE) 5,000 UNITS/ML 1ML VIAL SQ SCH ×2 (11:00→21:22)
[2018-07-03] MEDS: PANTOPRAZOLE 20 MG TABLET (FP) PO SCH (11:00)
[2018-07-03] MEDS ORDERED: NYSTATIN 100000 UNIT/GM TOPICAL OINTMENT 15 GM TUBE TP SCH (11:00)
[2018-07-03] MEDS: MULTIVITAMINS (DAILY MVI) TABLET (FP) PO SCH (11:00)
[2018-07-03] MEDS: CHOLECALCIFEROL (VITAMIN D3) 1,000 UNIT TABLET (FP) PO SCH (11:01)
[2018-07-03] MEDS: ASCORBIC ACID 500 MG TABLET (FP) PO SCH (11:01)
[2018-07-03 11:06] LABS: ACANTHOCYTES 1+; ANISOCYTOSIS 2+; MACROCYTOSIS 0; PLATELET ESTIMATE NORMAL; SICKELED CELLS 1+
[2018-07-03 12:17] LABS: HEMOGLOBIN 7.5 GM/dL (10.7-15.3); RBC 3.41 M/mm3 (3.60-5.2); WHITE BLOOD COUNT 5.4 K/mm3 (4.0-10.0)
[2018-07-03 12:18] LABS: BASO % 0.5 % (0-2.0); EOS % 1.8 % (0-4.5); HEMATOCRIT 25.1 % (32.4-45.2); LYMPH % 21.1 % (8-40); MCH 21.9 pg (25.7-33.7); MCHC 29.7 g/dl (32.0-36.0); MEAN CELL VOLUME 73.7 fl (80-96); MEAN PLT VOLUME 9.1 fl (7.5-11.1); NEUT % 66.6 % (42.8-82.8); PLATELET COUNT 331 K/MM3 (134-434); RDW 22.3 % (11.6-15.6)
--- NOTE | 2018-07-03 15:05 | PN ---
Progress Note (short form) - Note Progress Note: Ortho Pt seen and examined s/p left lateral tibial plateau fx Selected Entries 07/03/18 06:00 Temperature 98.6 F Pulse Rate 80 Respiratory 20 Rate Blood Pressure 98/62 + swelling, + ttp laterally, decr rom secondary to pain nvi a/p OR postponed for today- receiving 2 units PRBCs OR tomorrow afternoon surgical clearance npo after midnight hold AC after 10 pm tonight d/w Dr. Hamilton
--- NOTE | 2018-07-03 15:53 | PN ---
Progress Note (short form) - Note Progress Note: cc: knee pain s: complains of positional chest pain, worse when turning to either side. no palps, dizzy, dyspnea Vital Signs Period Temp Pulse Resp BP Sys/Gandara Pulse Ox Last 24 Hr 98.6 F-100 F 80-90 20-20 98-119/62-71 95 nad no jvd rrr s1s2 no mrg cta bl nl eff aao3 no le e/c/c, RLE with brace abd nt nd pos bs no jaundice diaphoresis pos dp pt no carotid bruits +chest wall tenderness Current Medications Acetaminophen (Tylenol -) 650 mg PO Q6H PRN PRN Reason: PAIN 1-3 Acetaminophen (Tylenol -) 325 mg PO BID PRN PRN Reason: PAIN LEVEL 7 - 10 Last Admin: 07/02/18 23:24 Dose: 325 mg Al Hydroxide/Mg Hydroxide (Mylanta Oral Suspension -) 30 ml PO Q6H PRN PRN Reason: DYSPEPSIA Ascorbic Acid (Vitamin C -) 500 mg PO DAILY [facility] Last Admin: 07/03/18 11:01 Dose: Not Given Calcium Carbonate/Cholecalciferol (Os-Elio 500+D -) 1 tab PO TID [facility] Last Admin: 07/03/18 14:30 Dose: 1 tab Cholecalciferol (Vitamin D3 -) 1,000 unit PO DAILY [facility] Last Admin: 07/03/18 11:01 Dose: Not Given Heparin Sodium (Porcine) (Heparin -) 5,000 unit SQ BID [facility] Last Admin: 07/03/18 11:00 Dose: Not Given Multivitamins/Minerals/Vitamin C (Tab-A-Vit -) 1 tab PO DAILY [facility] Last Admin: 07/03/18 11:00 Dose: Not Given Oxycodone HCl (Roxicodone -) 5 mg PO BID PRN PRN Reason: PAIN LEVEL 7 - 10 Last Admin: 07/02/18 23:25 Dose: 5 mg Pantoprazole Sodium (Protonix -) 20 mg PO DAILY [facility] Last Admin: 07/03/18 11:00 Dose: Not Given ecg: sr, nl intervals, no ischemic changes cxr: clear lungs a/p: 52 f hx gastric bypass, anemia here with knee pain. anemia: -likely due to poor absorption s/p gastric bypass and pt not taking her supplements -gi, heme following cp: -MSK s/p fall, no suggestion of cardiac etiology knee injury, preop: -possible surgery per ortho -Pt has no cardiac symptoms, no unstable cardiac issues. She has low risk of periop cardiac events for the planned knee surgery. stable from cardiac perspective
[2018-07-04] MEDS: CALCIUM 500MG/VIT-D 200 UNITS COMBO TABLET (FP) PO SCH ×3 (05:32→21:23)
[2018-07-04 08:26] LABS: BASO % 0.3 % (0-2.0); EOS % 1.8 % (0-4.5); HEMATOCRIT 29.1 % (32.4-45.2); LYMPH % 18.7 % (8-40); MCH 22.7 pg (25.7-33.7); MCHC 30.7 g/dl (32.0-36.0); MEAN CELL VOLUME 73.7 fl (80-96); MEAN PLT VOLUME 9.3 fl (7.5-11.1); MONO % 10.5 % (3.8-10.2); NEUT % 68.7 % (42.8-82.8); PLATELET COUNT 284 K/MM3 (134-434); RBC 3.95 M/mm3 (3.60-5.2); RDW 21.2 % (11.6-15.6); WHITE BLOOD COUNT 5.9 K/mm3 (4.0-10.0)
[2018-07-04 09:18] LABS: ALBUMIN 2.5 g/dl (3.4-5.0); ALK PHOS 100 U/L (45-117); ANION GAP 7 MMOL/L (8-16); BILIRUBIN,TOTAL 0.8 mg/dL (0.2-1); BLOOD UREA NITROGEN 9 mg/dL (7-18); CALCIUM 7.8 mg/dL (8.5-10.1); CHLORIDE 107 mmol/L (98-107); CO2 28 mmol/L (21-32); CREATININE 0.4 mg/dL (0.55-1.3); GLUCOSE,RANDOM 78 mg/dL (74-106); POTASSIUM 4.2 mmol/L (3.5-5.1); SGOT/AST 20 U/L (15-37); SGPT/ALT 17 U/L (13-61); SODIUM 141 mmol/L (136-145); TOT PROT 6.2 g/dl (6.4-8.2)
[2018-07-04] MEDS ORDERED: IRON SUCROSE INJECTION 200 MG in SODIUM CHLORIDE 90 ML IVPB ONE (11:00)
--- NOTE | 2018-07-04 11:10 | PN ---
Progress Note, Physician Chief Complaint: awake alert NAD NO NEW C/O no BM yet I suggested stolls softeners but pt does not want them, said it gave her explosive diarrhea in the past b/p lapband for knee surgery cleared; pt agreed - Current Medication List Current Medications: Active Medications Acetaminophen (Tylenol -) 650 mg PO Q6H PRN PRN Reason: PAIN 1-3 Acetaminophen (Tylenol -) 325 mg PO BID PRN PRN Reason: PAIN LEVEL 7 - 10 Last Admin: 07/02/18 23:24 Dose: 325 mg Al Hydroxide/Mg Hydroxide (Mylanta Oral Suspension -) 30 ml PO Q6H PRN PRN Reason: DYSPEPSIA Ascorbic Acid (Vitamin C -) 500 mg PO DAILY [facility] Last Admin: 07/03/18 11:01 Dose: Not Given Calcium Carbonate/Cholecalciferol (Os-Elio 500+D -) 1 tab PO TID [facility] Last Admin: 07/04/18 05:32 Dose: 1 tab Cholecalciferol (Vitamin D3 -) 1,000 unit PO DAILY [facility] Last Admin: 07/03/18 11:01 Dose: Not Given Heparin Sodium (Porcine) (Heparin -) 5,000 unit SQ BID [facility] Last Admin: 07/03/18 21:22 Dose: 5,000 unit Iron Sucrose 200 mg/ Sodium (Chloride) 100 mls @ 100 mls/hr IVPB ONCE ONE Stop: 07/04/18 11:59 Multivitamins/Minerals/Vitamin C (Tab-A-Vit -) 1 tab PO DAILY [facility] Last Admin: 07/03/18 11:00 Dose: Not Given Pantoprazole Sodium (Protonix -) 20 mg PO DAILY [facility] Last Admin: 07/03/18 11:00 Dose: Not Given - Objective Vital Signs: Vital Signs Temperature 98.9 F 07/04/18 06:00 Pulse Rate 88 07/04/18 06:00 Respiratory Rate 19 07/04/18 06:00 Blood Pressure 100/60 07/04/18 06:00 O2 Sat by Pulse Oximetry (%) 95 07/03/18 21:00 Constitutional: Yes: No Distress, Calm Eyes: Yes: Conjunctiva Clear HENT: Yes: Atraumatic Neck: Yes: Supple Cardiovascular: Yes: Regular Rate and Rhythm Respiratory: Yes: CTA Bilaterally Gastrointestinal: Yes: Soft. No: Distention, Tenderness Genitourinary: No: CVA Tenderness - Left, CVA Tenderness - Right Musculoskeletal: Yes: Other (L knee pain) Extremities: No: Calf Tenderness, Cold, Cool, Cyanosis Edema: No Integumentary: Yes: Rash (inner upper thighs fungic rash - local cream) Neurological: Yes: WNL, Alert, Oriented ...Motor Strength: WNL Psychiatric: Yes: WNL, Alert, Oriented. No: Agitated, Suicidal Ideation Labs: CBC, BMP 07/04/18 07:00 07/04/18 07:30 INR, PTT INR 1.10 (0.83-1.09) H 07/03/18 07:15 - ....Imaging Other: Report Reviewed Assessment/Plan 52 yo F w a pmh of cholecystectomy, lap band, gastric bypass, malabsorption presents with L sided knee pain s/p tripping and falling down 4 stairs at work MRI c/w L knee comminutive plateau fracture, further tx per ortho - surgery today - pt agreed anemia s/p transfusion - Hg >9 abNL EKG, cardiomegaly / CXR : seen by cardio and cleared for surgery NPO this am; hold sq heparin this am for knee surgery this afternoon no absolute CI for the proposed surgery GI and heme f/u and anemia - will need f/u with them outpt and also will need LAUNDROMAT MANAGER outpt -w/u d/w pt DVT PFX pain meds prn falls PFX d/w pt do not get OOB alone call for help if needed; do not step on LLE until cleared by ortho seen by case finishing machine adjuster for insurance and SNF planning d/w pt and staff; pt agreed with all the above.
[2018-07-04] MEDS: PANTOPRAZOLE 20 MG TABLET (FP) PO SCH (12:57)
[2018-07-04] MEDS: MULTIVITAMINS (DAILY MVI) TABLET (FP) PO SCH (12:57)
[2018-07-04] MEDS: CHOLECALCIFEROL (VITAMIN D3) 1,000 UNIT TABLET (FP) PO SCH (12:57)
[2018-07-04] MEDS: ASCORBIC ACID 500 MG TABLET (FP) PO SCH (12:57)
[2018-07-04] MEDS ORDERED: ROPIVACAINE HCL 0.5% 30ML VIAL ONE (13:51)
[2018-07-04] MEDS ORDERED: DEXAMETHASONE SOD PHOSPHATE/PF 10 MG/ML SDV ONE (13:51)
[2018-07-04] MEDS ORDERED: BUPIVACAINE HCL/PF 0.5% (5MG/ML) 10 ML VIAL ONE (13:51)
[2018-07-04 14:12] LABS: HGB SOLUBILITY Negative (Negative); Hgb A 98.2 % (96.4-98.8); Hgb C 0 % (0.0); Hgb F 0 % (0.0-2.0); Hgb S 0 % (0.0)
[2018-07-04] MEDS ORDERED: BUPIVACAINE LIPOSOME/PF (EXPAREL) 266 MG/20 ML VIAL NR ONE ×2 (14:15→19:01)
[2018-07-04] MEDS ORDERED: LIDOCAINE HCL/PF 2% SDV 5ML VIAL ONE (14:17)
[2018-07-04] MEDS ORDERED: SUCCINYLCHOLINE CHLORIDE 200 MG/10 ML VIAL ONE (14:17)
[2018-07-04] MEDS ORDERED: MIDAZOLAM HCL 2 MG/2 ML SINGLE DOSE VIAL ONE ×2 (14:17)
[2018-07-04] MEDS ORDERED: PROPOFOL 20 ML ONE ×4 (14:17→16:34)
[2018-07-04] MEDS ORDERED: LIDOCAINE HCL 1%, 10 MG/ML (20ML VIAL) ONE (14:43)
[2018-07-04] MEDS ORDERED: ceFAZolin SODIUM 1 GM VIAL IVPB ONE (15:23)
--- NOTE | 2018-07-04 16:08 | CONS ---
DATE OF CONSULTATION: 06/30/2018 LOCATION: Orthopedic consultation at [facility]. The patient is a 52-year-old female status post fall down stairs on the job, injuring her left knee. The patient was admitted to the hospital for pain management and orthopedic evaluation. On physical exam, patient had a great deal of pain throughout any range of motion of the left knee. She has tenderness along the lateral joint line especially, a negative Briseida exam, some instability with varus/valgus stress. Calves are soft, nontender. Difficult to assess range of motion as she is in a great deal of pain with range of motion. Good motion of hip, ankle, and toes, otherwise neurovascularly intact. X-rays, which I reviewed, show some degenerative changes and a probable acute lateral tibial plateau fracture but difficult to get a full sense on this x-ray. IMPRESSION: Internal derangement of the left knee, probable acute tibial plateau fracture with some degenerative joint disease of the knee which is longstanding. PLAN: Knee immobilizer, ice, and bed rest. Will arrange for the patient to get an MRI to further evaluate the possible fracture and other ligamentous injuries, and will further advise the patient on proceeding once MRI is done. ROSALIO PATEL M.D. [id number]
--- NOTE | 2018-07-04 16:42 | OP ---
Operative Note - Note: Operative Date: 07/04/18 ([facility]) Pre-Operative Diagnosis: left lateral tibial plateau fx Operation: left lateral tibial plateau orif Post-Operative Diagnosis: Same as Pre-op Surgeon: Austin Hamilton Rotating Equipment Specialist: Artur Howe Anesthesiologist/CHEMICAL WASTE MANAGEMENT TECHNICIAN: Sahil Miller Anesthesia: Spinal, Local Estimated Blood Loss (mls): 10 (tourniquet) Operative Report Dictated: Yes
[2018-07-04] MEDS: HEPARIN NA (PORCINE) 5,000 UNITS/ML 1ML VIAL SQ SCH (16:56)
[2018-07-04] MEDS ORDERED: ONDANSETRON 4 MG/2 ML VIAL IVPUSH PRN (17:33)
[2018-07-04] MEDS ORDERED: LACTATED RINGERS SOLUTION 1,000 ML IV SCH (17:45)
[2018-07-04] MEDS ORDERED: CEFAZOLIN 2 GM/D5W 2 GM/50 ML ML IVPB SCH ×2 (18:00→23:15)
[2018-07-04] MEDS ORDERED: ACETAMINOPHEN 325 MG TABLET (FP) PO PRN (19:01)
[2018-07-04] MEDS ORDERED: MAG HYDROX/AL HYDROX/SIMETH 30 ML UNIT-DOSE CUP PO PRN (19:01)
[2018-07-04] MEDS ORDERED: oxyCODONE HCL 5 MG TABLET PO PRN (19:44)
[2018-07-04] MEDS: oxyCODONE HCL 5 MG TABLET PO PRN (20:07)
--- NOTE | 2018-07-04 20:15 | OP ---
DATE OF OPERATION: 07/04/2018 PREOPERATIVE DIAGNOSIS: Left lateral tibial plateau fracture. POSTOPERATIVE DIAGNOSIS: Left lateral tibial plateau fracture. PROCEDURE: Open reduction/internal fixation of left lateral depressed tibial plateau fracture with bone grafting. SURGICAL ATTENDING: Austin Hamilton MD DISTRICT EXTENSION SERVICE AGENT: VIVIAN Luna ANESTHESIA: Regional and spinal. CLOSURE: [place] lateral tibial plateau locking plate with appropriate screws, No. 1 Vicryl facia, 0 and 2-0 subcutaneous, and bianca skin. ESTIMATED BLOOD LOSS: Negligible. TOURNIQUET TIME: Approximately an hour. COMPLICATIONS: None. DISPOSITION: Recovery room in stable condition. DESCRIPTION OF OPERATIVE PROCEDURE: The patient was taken to the operating room on July 04, 2018. Regional and spinal anesthesia were administered by the anesthesiologist. IV Kefzol was given prophylactically prior to the case. A well-padded pneumatic tourniquet was placed on the left proximal thigh. The left lower extremity was prepped and draped in the usual sterile fashion. The leg was exsanguinated with an Esmarch bandage, the tourniquet was inflated to 275 mmHg. A standard, curved, hockey-stick incision over the anterolateral aspect of the proximal tibia was made. Hemostasis obtained with electrocautery. Flaps were made circumferentially to perform the procedure. Dissection was made just medial to the tibial tubercle subperiosteally and curving along the joint line. We elevated the periosteum and the soft tissue off the bone, exposing the proximal tibia. The fracture was found to be a depressed fracture, but the outer cortex was mostly intact. We opened it from below with a core 10-mm reamer. We pounded up the articular surface from underneath with an angled , elevating the plateau back to its anatomical height. Part of the lateral plateau, in doing this, split and became a split fragment laterally. This was joysticked into the appropriate position and elevation and pinned in place. Underneath the articular surface, we filled the void with cancellous chips and StimuBlast bone putty. The plate was then clamped to the lateral aspect of the tibia. Multiple proximal and distal locking screws were applied, achieving excellent reduction of the fracture with excellent placement of the hardware. This was confirmed in the AP and lateral planes. The wound was irrigated. The fascia was then closed using No. 1 Vicryl suture. The subcutaneous was closed with 2-0 Vicryl and bianca for the skin. A sterile pressure dressing, followed by a knee immobilizer were applied. The tourniquet was deflated at the end of the case. TOTAL SURGICAL TIME: Approximately an hour. No complications. Estimated blood loss was negligible. Abundio [id number]
[2018-07-04] MEDS: morphine SULFATE 4 MG/ML VIAL IVPUSH PRN (22:11)
[2018-07-05] MEDS: morphine SULFATE 4 MG/ML VIAL IVPUSH PRN ×4 (02:10→21:49)
[2018-07-05] MEDS: CALCIUM 500MG/VIT-D 200 UNITS COMBO TABLET (FP) PO SCH ×3 (06:06→21:47)
[2018-07-05 07:38] LABS: BASO % 0.2 % (0-2.0); HEMATOCRIT 30.6 % (32.4-45.2); HEMOGLOBIN 9.3 GM/dL (10.7-15.3); LYMPH % 6.4 % (8-40); MCH 22.9 pg (25.7-33.7); MCHC 30.5 g/dl (32.0-36.0); MEAN CELL VOLUME 75.2 fl (80-96); MEAN PLT VOLUME 9.3 fl (7.5-11.1); MONO % 11.8 % (3.8-10.2); NEUT % 81.6 % (42.8-82.8); PLATELET COUNT 282 K/MM3 (134-434); RBC 4.06 M/mm3 (3.60-5.2); RDW 22.2 % (11.6-15.6); WHITE BLOOD COUNT 9.6 K/mm3 (4.0-10.0)
[2018-07-05 08:01] LABS: ALBUMIN 2.4 g/dl (3.4-5.0); ALK PHOS 110 U/L (45-117); ANION GAP 7 MMOL/L (8-16); BILIRUBIN,TOTAL 0.5 mg/dL (0.2-1); BLOOD UREA NITROGEN 6 mg/dL (7-18); CALCIUM 7.7 mg/dL (8.5-10.1); CHLORIDE 106 mmol/L (98-107); CO2 27 mmol/L (21-32); CREATININE 0.4 mg/dL (0.55-1.3); GLUCOSE,RANDOM 101 mg/dL (74-106); POTASSIUM 4.3 mmol/L (3.5-5.1); SGOT/AST 32 U/L (15-37); SGPT/ALT 21 U/L (13-61); SODIUM 140 mmol/L (136-145); TOT PROT 6.4 g/dl (6.4-8.2)
--- NOTE | 2018-07-05 08:25 | PN ---
Progress Note, Physician Chief Complaint: s/p knee surgery knee pain had small BM yesterday no N/V/ abdominal pain d/w ortho at bedside OK restart sq heparin - Current Medication List Current Medications: Active Medications Acetaminophen (Tylenol -) 650 mg PO Q6H PRN PRN Reason: PAIN 1-3 Acetaminophen (Tylenol -) 325 mg PO Q12H PRN PRN Reason: PAIN 7 - 10; OXYCODONE NT WRK Al Hydroxide/Mg Hydroxide (Mylanta Oral Suspension -) 30 ml PO Q6H PRN PRN Reason: DYSPEPSIA Last Admin: 07/05/18 02:02 Dose: 30 ml Ascorbic Acid (Vitamin C -) 500 mg PO DAILY [facility] Calcium Carbonate/Cholecalciferol (Os-Elio 500+D -) 1 tab PO TID [facility] Last Admin: 07/05/18 06:06 Dose: 1 tab Cholecalciferol (Vitamin D3 -) 1,000 unit PO DAILY [facility] Docusate Sodium (Colace -) 300 mg PO HS [facility] Fentanyl (Sublimaze Injection -) 50 mcg IVPUSH Q5M PRN PRN Reason: PAIN-PACU ORDER X 4 DOSES ONLY Lactated Ringer's (Lactated Ringers Solution) 1,000 mls @ 125 mls/hr IV ASDIR [facility] Last Admin: 07/04/18 20:06 Dose: 125 mls/hr Morphine Sulfate (Morphine Sulfate) 4 mg IVPUSH Q4H PRN PRN Reason: PAIN LEVEL 7-10 Last Admin: 07/05/18 06:06 Dose: 4 mg Multivitamins/Minerals/Vitamin C (Tab-A-Vit -) 1 tab PO DAILY [facility] Ondansetron HCl (Zofran Injection) 4 mg IVPUSH Q6H PRN PRN Reason: NAUSEA AND/OR VOMITING Oxycodone HCl (Roxicodone -) 5 mg PO Q4H PRN PRN Reason: PAIN 4-6 Oxycodone HCl (Roxicodone -) 10 mg PO Q4H PRN PRN Reason: PAIN LEVEL 7-10 Last Admin: 07/04/18 20:07 Dose: 10 mg Pantoprazole Sodium (Protonix -) 20 mg PO DAILY [facility] Polyethylene Glycol (Miralax (For Daily Use) -) 17 gm PO DAILY [facility] - Objective Vital Signs: Vital Signs Temperature 98.5 F 07/05/18 07:45 Pulse Rate 94 H 07/05/18 07:45 Respiratory Rate 17 07/05/18 07:45 Blood Pressure 123/68 07/05/18 07:45 O2 Sat by Pulse Oximetry (%) 100 07/04/18 21:00 Constitutional: Yes: No Distress, Calm Eyes: Yes: Conjunctiva Clear HENT: Yes: Atraumatic Neck: Yes: Supple Cardiovascular: Yes: Regular Rate and Rhythm Respiratory: Yes: CTA Bilaterally Gastrointestinal: Yes: Soft. No: Distention Genitourinary: No: CVA Tenderness - Left, CVA Tenderness - Right Extremities: No: Cold, Cool, Cyanosis Edema: No Integumentary: No: Rash, Venous Stasis Changes Neurological: Yes: WNL, Alert, Oriented ...Motor Strength: WNL Psychiatric: Yes: WNL, Alert, Oriented. No: Agitated, Suicidal Ideation Labs: CBC, BMP 07/05/18 07:00 07/05/18 07:00 INR, PTT INR 1.10 (0.83-1.09) H 07/03/18 07:15 - ....Imaging Other: Report Reviewed Assessment/Plan 52 yo F w a pmh of cholecystectomy, lap band, gastric bypass, malabsorption presents with L sided knee pain s/p tripping and falling down 4 stairs at work MRI c/w L knee comminutive plateau fracture, s/p knee surgery anemia s/p transfusion - Hg >9 restart sq heparin - OK with ortho stools softeners prn pt asked for them now d/w pt again: GI and heme f/u and anemia - will need f/u with them outpt and also will need [employer] outpt -w/u d/w pt DVT PFX pain meds prn falls PFX d/w pt do not get OOB alone call for help if needed; do not step on LLE until cleared by ortho; do not step on the knee for know remove bianca in 10 days in SNF seen by hospice case manager for insurance and SNF planning d/w pt and staff; pt agreed with all the above.
[2018-07-05] MEDS: CHOLECALCIFEROL (VITAMIN D3) 1,000 UNIT TABLET (FP) PO SCH (09:12)
[2018-07-05] MEDS: MULTIVITAMINS (DAILY MVI) TABLET (FP) PO SCH (09:12)
[2018-07-05] MEDS: ASCORBIC ACID 500 MG TABLET (FP) PO SCH (09:12)
[2018-07-05] MEDS: PANTOPRAZOLE 20 MG TABLET (FP) PO SCH (09:12)
[2018-07-05] MEDS: oxyCODONE HCL 5 MG TABLET PO PRN (09:13)
[2018-07-05] MEDS: POLYETHYLENE GLYCOL 3350 119 GM BTL PO SCH (09:15)
--- NOTE | 2018-07-05 10:46 | PN ---
Progress Note (short form) - Note Progress Note: Anesthesia POD#1 S/P Left Knee ORIF with Block Adductor canal and Pop VSS,oral food is started,no N/V,pain was excruciating yesterday, it is under control now. No other complications seen. Ira Rankin MD.
--- NOTE | 2018-07-05 14:47 | PN ---
Progress Note (short form) - Note Progress Note: Ortho Pt seen and examined s/p left lateral tibial plateau ORIF pod #1 Selected Entries 07/05/18 11:00 Temperature 98.4 F Pulse Rate 83 Respiratory 20 Rate Blood Pressure 127/68 Laboratory Tests 07/05/18 07:00 WBC 9.6 Hgb 9.3 L Hct 30.6 L Plt Count 282 dressing with bloody drainage, calf soft, nt nvi a/p Dressing changed PT NWB with knee immobilizer may remove immobilizer and perform gentle ROM exercises pain control dvt ppx d/c planning
[2018-07-05] MEDS: ACETAMINOPHEN 325 MG TABLET (FP) PO PRN (15:36)
[2018-07-05 16:30] LABS: TOTAL PROTEIN, URINE 40.2 mg/dL (Not Estab.)
--- NOTE | 2018-07-05 16:38 | PN ---
Progress Note (short form) - Note Progress Note: cc: knee pain s: no cp palps, dizzy, dyspnea Vital Signs Period Temp Pulse Resp BP Sys/Gandara Pulse Ox Last 24 Hr 98 F-99.4 F 61-94 14-20 103-131/52-75 95-100 nad no jvd rrr s1s2 no mrg cta bl nl eff aao3 no le e/c/c, RLE with brace abd nt nd pos bs no jaundice diaphoresis +chest wall tenderness Current Medications Generic Name Dose Route Start Last Admin Trade Name Freq PRN Reason Stop Dose Admin Acetaminophen 650 mg 07/04/18 19:01 Tylenol - PO Q6H PRN PAIN 1-3 Acetaminophen 325 mg 07/04/18 19:01 07/05/18 15:36 Tylenol - PO 325 mg Q12H PRN Administration PAIN 7 - 10; OXYCODONE NT WRK Al Hydroxide/Mg Hydroxide 30 ml 07/04/18 19:01 07/05/18 02:02 Mylanta Oral Suspension - PO 30 ml Q6H PRN Administration DYSPEPSIA Ascorbic Acid 500 mg 07/05/18 10:00 07/05/18 09:12 Vitamin C - PO 500 mg DAILY [facility] Administration Calcium Carbonate/Cholecalciferol 1 tab 07/04/18 22:00 07/05/18 13:11 Os-Elio 500+D - PO 1 tab TID [facility] Administration Cholecalciferol 1,000 unit 07/05/18 10:00 07/05/18 09:12 Vitamin D3 - PO 1,000 unit DAILY [facility] Administration Docusate Sodium 300 mg 07/05/18 22:00 Colace - PO HS [facility] Fentanyl 50 mcg 07/04/18 17:33 Sublimaze Injection - IVPUSH Q5M PRN PAIN-PACU ORDER X 4 DOSES ONLY Lactated Ringer's 1,000 mls @ 125 mls/hr 07/04/18 17:45 07/04/18 20:06 Lactated Ringers Solution IV 125 mls/hr ASDIR [facility] Administration Morphine Sulfate 4 mg 07/04/18 22:05 07/05/18 13:10 Morphine Sulfate IVPUSH 4 mg Q4H PRN Administration PAIN LEVEL 7-10 Multivitamins/Minerals/Vitamin C 1 tab 07/05/18 10:00 10/24/18 09:12 Tab-A-Vit - PO 1 tab DAILY [facility] Administration Ondansetron HCl 4 mg 07/04/18 17:33 Zofran Injection IVPUSH Q6H PRN NAUSEA AND/OR VOMITING Oxycodone HCl 5 mg 07/04/18 19:44 Roxicodone - PO Q4H PRN PAIN 4-6 Oxycodone HCl 10 mg 07/04/18 19:44 07/05/18 09:13 Roxicodone - PO 10 mg Q4H PRN Administration PAIN LEVEL 7-10 Pantoprazole Sodium 20 mg 07/05/18 10:00 07/05/18 09:12 Protonix - PO 20 mg DAILY [facility] Administration Polyethylene Glycol 17 gm 07/05/18 10:00 07/05/18 09:15 Miralax (For Daily Use) - PO 17 gm DAILY [facility] Administration ecg: sr, nl intervals, no ischemic changes cxr: clear lungs a/p: 52 f hx gastric bypass, anemia here with knee pain. anemia: -likely due to poor absorption s/p gastric bypass and pt not taking her supplements -gi, heme following cp: -MSK s/p fall, no suggestion of cardiac etiology, improving knee injury, preop: -s/p surgery stable from cardiac perspective
[2018-07-05] MEDS: DOCUSATE SODIUM 100 MG CAPSULE (FP) PO SCH (21:47)
[2018-07-05] MEDS ORDERED: CEFAZOLIN 2 GM/D5W 2 GM/50 ML ML IVPB SCH (23:00)
[2018-07-06] MEDS: oxyCODONE HCL 5 MG TABLET PO PRN ×2 (01:05→15:19)
[2018-07-06] MEDS: ACETAMINOPHEN 325 MG TABLET (FP) PO PRN ×2 (01:06→15:19)
[2018-07-06] MEDS: CALCIUM 500MG/VIT-D 200 UNITS COMBO TABLET (FP) PO SCH ×3 (05:53→21:44)
[2018-07-06 08:23] LABS: BASO % 0.3 % (0-2.0); EOS % 1.2 % (0-4.5); HEMATOCRIT 27.2 % (32.4-45.2); HEMOGLOBIN 8.3 GM/dL (10.7-15.3); LYMPH % 15.1 % (8-40); MCH 23.2 pg (25.7-33.7); MCHC 30.6 g/dl (32.0-36.0); MEAN CELL VOLUME 75.7 fl (80-96); MEAN PLT VOLUME 8.9 fl (7.5-11.1); MONO % 16.3 % (3.8-10.2); NEUT % 67.1 % (42.8-82.8); PLATELET COUNT 225 K/MM3 (134-434); RDW 22.7 % (11.6-15.6); WHITE BLOOD COUNT 6.4 K/mm3 (4.0-10.0)
[2018-07-06 09:07] LABS: ALBUMIN 2.2 g/dl (3.4-5.0); ALK PHOS 104 U/L (45-117); ANION GAP 7 MMOL/L (8-16); BILIRUBIN,TOTAL 0.5 mg/dL (0.2-1); BLOOD UREA NITROGEN 8 mg/dL (7-18); CALCIUM 7.5 mg/dL (8.5-10.1); CHLORIDE 104 mmol/L (98-107); CO2 29 mmol/L (21-32); CREATININE 0.4 mg/dL (0.55-1.3); GLUCOSE,RANDOM 78 mg/dL (74-106); POTASSIUM 4.3 mmol/L (3.5-5.1); SGOT/AST 43 U/L (15-37); SGPT/ALT 22 U/L (13-61); SODIUM 140 mmol/L (136-145); TOT PROT 5.8 g/dl (6.4-8.2)
--- NOTE | 2018-07-06 09:51 | PN ---
Progress Note (short form) - Note Progress Note: Ortho Pt seen and examined s/p left lateral tibial plateau ORIF pod #2 Selected Entries 07/06/18 06:42 Temperature 98.2 F Pulse Rate 88 Respiratory 19 Rate Blood Pressure 102/66 Laboratory Tests 07/06/18 07:00 WBC 6.4 Hgb 8.3 L Hct 27.2 L Plt Count 225 D dressing c/d/i, calf soft, nt nvi a/p PT NWB with knee immobilizer may remove immobilizer and perform gentle ROM exercises pain control dvt ppx d/c planning
[2018-07-06] MEDS: PANTOPRAZOLE 20 MG TABLET (FP) PO SCH (10:36)
[2018-07-06] MEDS: CHOLECALCIFEROL (VITAMIN D3) 1,000 UNIT TABLET (FP) PO SCH (10:36)
[2018-07-06] MEDS: ASCORBIC ACID 500 MG TABLET (FP) PO SCH (10:36)
[2018-07-06] MEDS: HEPARIN NA (PORCINE) 5,000 UNITS/ML 1ML VIAL SQ SCH ×2 (10:36→21:44)
[2018-07-06] MEDS: POLYETHYLENE GLYCOL 3350 119 GM BTL PO SCH (10:37)
[2018-07-06] MEDS: MULTIVITAMINS (DAILY MVI) TABLET (FP) PO SCH (10:37)
--- NOTE | 2018-07-06 10:45 | PN ---
Progress Note, Physician Chief Complaint: less knee pain no N/V/ abdominal pain no BM (had small BM before the surgery) d/w pt to take stools softeners but she does not want to take them at this point d/w pt she can become impacted and have further complications b/o it to take laxatives, drink water and eat fiber diet - Current Medication List Current Medications: Active Medications Acetaminophen (Tylenol -) 650 mg PO Q6H PRN PRN Reason: PAIN 1-3 Acetaminophen (Tylenol -) 325 mg PO Q12H PRN PRN Reason: PAIN 7 - 10; OXYCODONE NT WRK Last Admin: 07/06/18 01:06 Dose: 325 mg Al Hydroxide/Mg Hydroxide (Mylanta Oral Suspension -) 30 ml PO Q6H PRN PRN Reason: DYSPEPSIA Last Admin: 07/05/18 02:02 Dose: 30 ml Ascorbic Acid (Vitamin C -) 500 mg PO DAILY [facility] Last Admin: 07/06/18 10:36 Dose: 500 mg Calcium Carbonate/Cholecalciferol (Os-Elio 500+D -) 1 tab PO TID [facility] Last Admin: 07/06/18 05:53 Dose: 1 tab Cholecalciferol (Vitamin D3 -) 1,000 unit PO DAILY [facility] Last Admin: 07/06/18 10:36 Dose: 1,000 unit Docusate Sodium (Colace -) 300 mg PO HS [facility] Last Admin: 07/05/18 21:47 Dose: 300 mg Fentanyl (Sublimaze Injection -) 50 mcg IVPUSH Q5M PRN PRN Reason: PAIN-PACU ORDER X 4 DOSES ONLY Heparin Sodium (Porcine) (Heparin -) 5,000 unit SQ BID [facility] Last Admin: 07/06/18 10:36 Dose: 5,000 unit Morphine Sulfate (Morphine Sulfate) 4 mg IVPUSH Q4H PRN PRN Reason: PAIN LEVEL 7-10 Last Admin: 07/05/18 21:49 Dose: 4 mg Multivitamins/Minerals/Vitamin C (Tab-A-Vit -) 1 tab PO DAILY [facility] Last Admin: 07/06/18 10:37 Dose: 1 tab Ondansetron HCl (Zofran Injection) 4 mg IVPUSH Q6H PRN PRN Reason: NAUSEA AND/OR VOMITING Oxycodone HCl (Roxicodone -) 5 mg PO Q4H PRN PRN Reason: PAIN 4-6 Oxycodone HCl (Roxicodone -) 10 mg PO Q4H PRN PRN Reason: PAIN LEVEL 7-10 Last Admin: 07/06/18 01:05 Dose: 10 mg Pantoprazole Sodium (Protonix -) 20 mg PO DAILY [facility] Last Admin: 07/06/18 10:36 Dose: 20 mg Polyethylene Glycol (Miralax (For Daily Use) -) 17 gm PO DAILY [facility] Last Admin: 07/06/18 10:37 Dose: 17 gm - Objective Vital Signs: Vital Signs Temperature 98.2 F 07/06/18 06:42 Pulse Rate 88 07/06/18 06:42 Respiratory Rate 19 07/06/18 06:42 Blood Pressure 102/66 07/06/18 06:42 O2 Sat by Pulse Oximetry (%) 96 07/06/18 09:00 Constitutional: Yes: No Distress, Calm Eyes: Yes: Conjunctiva Clear HENT: Yes: Atraumatic Neck: Yes: Supple Cardiovascular: Yes: Regular Rate and Rhythm Respiratory: Yes: CTA Bilaterally Gastrointestinal: Yes: Soft. No: Distention, Tenderness Genitourinary: No: CVA Tenderness - Left, CVA Tenderness - Right, Hematuria Musculoskeletal: Yes: Other (L knee s/p surgery) Extremities: No: Cold, Cool, Cyanosis Edema: No Integumentary: No: Rash, Venous Stasis Changes Neurological: Yes: WNL, Alert, Oriented ...Motor Strength: WNL Psychiatric: Yes: WNL, Alert, Oriented. No: Agitated, Suicidal Ideation Labs: CBC, BMP 07/06/18 07:00 07/06/18 07:00 INR, PTT INR 1.10 (0.83-1.09) H 07/03/18 07:15 - ....Imaging Other: Report Reviewed Assessment/Plan 52 yo F w a pmh of cholecystectomy, lap band, gastric bypass, malabsorption presents with L sided knee pain s/p tripping and falling down 4 stairs at work MRI c/w L knee comminutive plateau fracture, s/p knee surgery anemia stable DVT sq heparin advised to take stools softeners for constipation; but pt refused for them now GI and heme f/u and anemia - will need f/u with them outpt and also will need [employer] outpt -w/u d/w pt decubs PFX d/w pt turn in bed and PT rehab bedside pain meds prn falls PFX d/w pt do not get OOB alone call for help if needed; do not step on LLE until cleared by ortho; remove bianca in 10 days in SNF d/w pt and staff; pt agreed with all the above.
[2018-07-06] MEDS: morphine SULFATE 4 MG/ML VIAL IVPUSH PRN (13:04)
--- NOTE | 2018-07-06 16:05 | CON.CARD ---
Consult - History of Present Illness History of Present Illness: cc: knee pain s: no cp palps, dizzy, dyspnea Vital Signs Period Temp Pulse Resp BP Sys/Gandara Pulse Ox Last 24 Hr 97.8 F-98.2 F 78-90 19-20 102-109/66-78 96-96 nad no jvd rrr s1s2 no mrg cta bl nl eff aao3 no le e/c/c, RLE with brace abd nt nd pos bs no jaundice diaphoresis +chest wall tenderness Current Medications Acetaminophen (Tylenol -) 650 mg PO Q6H PRN PRN Reason: PAIN 1-3 Acetaminophen (Tylenol -) 325 mg PO Q12H PRN PRN Reason: PAIN 7 - 10; OXYCODONE NT WRK Last Admin: 07/06/18 15:19 Dose: 325 mg Al Hydroxide/Mg Hydroxide (Mylanta Oral Suspension -) 30 ml PO Q6H PRN PRN Reason: DYSPEPSIA Last Admin: 07/05/18 02:02 Dose: 30 ml Ascorbic Acid (Vitamin C -) 500 mg PO DAILY [facility] Last Admin: 07/06/18 10:36 Dose: 500 mg Calcium Carbonate/Cholecalciferol (Os-Elio 500+D -) 1 tab PO TID [facility] Last Admin: 07/06/18 13:02 Dose: 1 tab Cholecalciferol (Vitamin D3 -) 1,000 unit PO DAILY [facility] Last Admin: 07/06/18 10:36 Dose: 1,000 unit Docusate Sodium (Colace -) 300 mg PO HS [facility] Last Admin: 07/05/18 21:47 Dose: 300 mg Fentanyl (Sublimaze Injection -) 50 mcg IVPUSH Q5M PRN PRN Reason: PAIN-PACU ORDER X 4 DOSES ONLY Heparin Sodium (Porcine) (Heparin -) 5,000 unit SQ BID [facility] Last Admin: 07/06/18 10:36 Dose: 5,000 unit Morphine Sulfate (Morphine Sulfate) 4 mg IVPUSH Q4H PRN PRN Reason: PAIN LEVEL 7-10 Last Admin: 07/06/18 13:04 Dose: 4 mg Multivitamins/Minerals/Vitamin C (Tab-A-Vit -) 1 tab PO DAILY [facility] Last Admin: 07/06/18 10:37 Dose: 1 tab Ondansetron HCl (Zofran Injection) 4 mg IVPUSH Q6H PRN PRN Reason: NAUSEA AND/OR VOMITING Oxycodone HCl (Roxicodone -) 5 mg PO Q4H PRN PRN Reason: PAIN 4-6 Oxycodone HCl (Roxicodone -) 10 mg PO Q4H PRN PRN Reason: PAIN LEVEL 7-10 Last Admin: 07/06/18 15:19 Dose: 10 mg Pantoprazole Sodium (Protonix -) 20 mg PO DAILY [facility] Last Admin: 07/06/18 10:36 Dose: 20 mg Polyethylene Glycol (Miralax (For Daily Use) -) 17 gm PO DAILY [facility] Last Admin: 07/06/18 10:37 Dose: 17 gm ecg: sr, nl intervals, no ischemic changes cxr: clear lungs a/p: 52 f hx gastric bypass, anemia here with knee pain. anemia: -likely due to poor absorption s/p gastric bypass and pt not taking her supplements -gi, heme following - manage per primary team cp: -MSK s/p fall, no suggestion of cardiac etiology, improving knee injury -s/p knee surgery surgery stable from cardiac perspective - Past Medical History Additional Medical History: Obesity, venous insufficiency b/l LE - Past Surgical History Past Surgical History: Yes: Bariatric Surgery (Rodney-en-y gastric bypass, lap band), Cholecystectomy (Open) - Alcohol/Substance Use Hx Alcohol Use: No History of Substance Use: reports: None - Smoking History Smoking history: Never smoked Have you smoked in the past 12 months: No - Social History Usual Living Arrangement: With Child ADL: Independent Occupation: Direct service provider for developmentally challeneged History of Recent Travel: No Home Medications - Allergies Allergies/Adverse Reactions: Allergies Allergy/AdvReac Type Severity Reaction Status Date / Time celecoxib [From Celebrex] Allergy Unknown Verified 06/29/18 17:05 vicodan Allergy Unknown Uncoded 06/29/18 17:05 - Home Medications Home Medications: Ambulatory Orders Citracal Plus Tablet 1 tab PO TID 09/15/11 Ferrex 150 Forte Capsule 1 tab PO DAILY 09/15/11 Motrin 400 mg PO BID PRN 09/15/11 Motrin 600 mg PO DAILY 09/15/11 Multivitamin 1 tab PO DAILY 09/15/11 Vitamin C 500 mg PO DAILY 09/15/11 Vitamin D3 1,000 mg PO DAILY 09/15/11 Family Disease History - Family Disease History Family Disease History: Other: Father (: 51: Diabetic complications and PE) , Mother (: 72: complications fro URI), Brother (2, healthy), Sister (4, healthy), Son (1, healthy), Daughter (None) Other Family History: No family history of colorectal cancer or other GI malignancy Vital Signs: Vital Signs Temperature 97.8 F 07/06/18 09:00 Pulse Rate 78 07/06/18 09:00 Respiratory Rate 20 07/06/18 09:00 Blood Pressure 109/78 07/06/18 09:00 O2 Sat by Pulse Oximetry (%) 96 07/06/18 09:00 - Other Data Labs, Other Data: CBC, BMP 07/06/18 07:00 07/06/18 07:00 INR, PTT INR 1.10 (0.83-1.09) H 07/03/18 07:15
--- NOTE | 2018-07-06 16:06 | PN ---
Progress Note (short form) - Note Progress Note: cc: knee pain s: no cp palps, dizzy, dyspnea. knee pain after PT today Vital Signs Period Temp Pulse Resp BP Sys/Gandara Pulse Ox Last 24 Hr 97.8 F-98.2 F 78-90 19-20 102-109/66-78 96-96 nad no jvd rrr s1s2 no mrg cta bl nl eff aao3 no le e/c/c, RLE with brace abd nt nd pos bs no jaundice diaphoresis +chest wall tenderness Current Medications Acetaminophen (Tylenol -) 650 mg PO Q6H PRN PRN Reason: PAIN 1-3 Acetaminophen (Tylenol -) 325 mg PO Q12H PRN PRN Reason: PAIN 7 - 10; OXYCODONE NT WRK Last Admin: 07/06/18 15:19 Dose: 325 mg Al Hydroxide/Mg Hydroxide (Mylanta Oral Suspension -) 30 ml PO Q6H PRN PRN Reason: DYSPEPSIA Last Admin: 07/05/18 02:02 Dose: 30 ml Ascorbic Acid (Vitamin C -) 500 mg PO DAILY [facility] Last Admin: 07/06/18 10:36 Dose: 500 mg Calcium Carbonate/Cholecalciferol (Os-Elio 500+D -) 1 tab PO TID [facility] Last Admin: 07/06/18 13:02 Dose: 1 tab Cholecalciferol (Vitamin D3 -) 1,000 unit PO DAILY [facility] Last Admin: 07/06/18 10:36 Dose: 1,000 unit Docusate Sodium (Colace -) 300 mg PO HS [facility] Last Admin: 07/05/18 21:47 Dose: 300 mg Fentanyl (Sublimaze Injection -) 50 mcg IVPUSH Q5M PRN PRN Reason: PAIN-PACU ORDER X 4 DOSES ONLY Heparin Sodium (Porcine) (Heparin -) 5,000 unit SQ BID [facility] Last Admin: 07/06/18 10:36 Dose: 5,000 unit Morphine Sulfate (Morphine Sulfate) 4 mg IVPUSH Q4H PRN PRN Reason: PAIN LEVEL 7-10 Last Admin: 07/06/18 13:04 Dose: 4 mg Multivitamins/Minerals/Vitamin C (Tab-A-Vit -) 1 tab PO DAILY [facility] Last Admin: 07/06/18 10:37 Dose: 1 tab Ondansetron HCl (Zofran Injection) 4 mg IVPUSH Q6H PRN PRN Reason: NAUSEA AND/OR VOMITING Oxycodone HCl (Roxicodone -) 5 mg PO Q4H PRN PRN Reason: PAIN 4-6 Oxycodone HCl (Roxicodone -) 10 mg PO Q4H PRN PRN Reason: PAIN LEVEL 7-10 Last Admin: 07/06/18 15:19 Dose: 10 mg Pantoprazole Sodium (Protonix -) 20 mg PO DAILY [facility] Last Admin: 07/06/18 10:36 Dose: 20 mg Polyethylene Glycol (Miralax (For Daily Use) -) 17 gm PO DAILY [facility] Last Admin: 07/06/18 10:37 Dose: 17 gm ecg: sr, nl intervals, no ischemic changes cxr: clear lungs a/p: 52 f hx gastric bypass, anemia here with knee pain. anemia: -likely due to poor absorption s/p gastric bypass and pt not taking her supplements -gi, heme following cp: -MSK s/p fall, no suggestion of cardiac etiology, improving knee injury -s/p knee surgery stable from cardiac perspective
[2018-07-06] MEDS: DOCUSATE SODIUM 100 MG CAPSULE (FP) PO SCH (21:47)
[2018-07-07] MEDS: CALCIUM 500MG/VIT-D 200 UNITS COMBO TABLET (FP) PO SCH (05:31)
[2018-07-07 07:32] LABS: BASO % 0.8 % (0-2.0); EOS % 1.5 % (0-4.5); HEMATOCRIT 26.8 % (32.4-45.2); HEMOGLOBIN 8.1 GM/dL (10.7-15.3); LYMPH % 20.8 % (8-40); MCH 23.2 pg (25.7-33.7); MCHC 30.2 g/dl (32.0-36.0); MEAN CELL VOLUME 76.8 fl (80-96); MONO % 15.2 % (3.8-10.2); NEUT % 61.7 % (42.8-82.8); PLATELET COUNT 202 K/MM3 (134-434); RBC 3.49 M/mm3 (3.60-5.2); WHITE BLOOD COUNT 5.4 K/mm3 (4.0-10.0)
[2018-07-07 08:02] LABS: ANION GAP 7 MMOL/L (8-16); BLOOD UREA NITROGEN 10 mg/dL (7-18); CALCIUM 7.4 mg/dL (8.5-10.1); CHLORIDE 107 mmol/L (98-107); CO2 28 mmol/L (21-32); CREATININE 0.4 mg/dL (0.55-1.3); GLUCOSE,RANDOM 75 mg/dL (74-106); POTASSIUM 4.3 mmol/L (3.5-5.1); SODIUM 142 mmol/L (136-145)
--- NOTE | 2018-07-07 09:52 | PN ---
Progress Note (short form) - Note Progress Note: Ortho Pt seen and examined s/p left lateral tibial plateau ORIF pod #3 Selected Entries 07/07/18 09:10 Temperature 98.6 F Pulse Rate 92 H Respiratory 18 Rate Blood Pressure 103/57 L Laboratory Tests 07/07/18 06:30 WBC 5.4 Hgb 8.1 L Hct 26.8 L Plt Count 202 dressing c/d/i, calf soft, nt nvi a/p PT NWB with knee immobilizer may remove immobilizer and perform gentle ROM exercises pain control dvt ppx d/c planning
[2018-07-07] MEDS: HEPARIN NA (PORCINE) 5,000 UNITS/ML 1ML VIAL SQ SCH (09:58)
[2018-07-07] MEDS: ASCORBIC ACID 500 MG TABLET (FP) PO SCH (09:58)
[2018-07-07] MEDS: CHOLECALCIFEROL (VITAMIN D3) 1,000 UNIT TABLET (FP) PO SCH (09:58)
[2018-07-07] MEDS: MULTIVITAMINS (DAILY MVI) TABLET (FP) PO SCH (09:58)
[2018-07-07] MEDS: PANTOPRAZOLE 20 MG TABLET (FP) PO SCH (09:58)
[2018-07-07] MEDS: POLYETHYLENE GLYCOL 3350 119 GM BTL PO SCH (09:58)
[2018-07-07] MEDS: ACETAMINOPHEN 325 MG TABLET (FP) PO PRN (10:01)
[2018-07-07] MEDS: oxyCODONE HCL 5 MG TABLET PO PRN (10:01)
--- NOTE | 2018-07-07 12:11 | DS ---
Physical Examination Vital Signs: Vital Signs Temperature 98.6 F 07/07/18 09:10 Pulse Rate 92 H 07/07/18 09:10 Respiratory Rate 18 07/07/18 09:10 Blood Pressure 103/57 L 07/07/18 09:10 O2 Sat by Pulse Oximetry (%) 95 07/07/18 10:00 Findings/Remarks: feels well less knee pain still no BM but said she feels "bubbling" and will go soon no N/V/ abdominal pain anemia stable, VSS afebrile agreed for NH / SNF will need anemia w/u outpt Constitutional: Yes: No Distress, Calm Eyes: Yes: Conjunctiva Clear HENT: Yes: Atraumatic Neck: Yes: Supple Cardiovascular: Yes: Regular Rate and Rhythm Respiratory: Yes: CTA Bilaterally Gastrointestinal: Yes: Soft. No: Distention, Tenderness Renal/: No: CVA Tenderness - Left, CVA Tenderness - Right Musculoskeletal: No: Joint Stiffness, Joint Swelling Extremities: No: Cold, Cool, Cyanosis Edema: No Integumentary: No: Pressure Ulcer, Rash, Venous Stasis Changes Neurological: Yes: WNL, Alert, Oriented ...Motor Strength: WNL Psychiatric: Yes: WNL, Alert, Oriented. No: Agitated, Suicidal Ideation Labs: CBC, BMP 07/07/18 06:30 07/07/18 06:30 Discharge Summary Reason For Visit: KNEE INJURY INABILITY TO AMBULATE Current Active Problems Anemia (Acute) Inability to ambulate due to knee (Acute) Knee injury (Acute) Procedures: Principal: admitted s/p fall at work L knee fracture s/p surgery / ortho Other Procedures: anemia, gastic bypass; obesity;. 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) constipation prevention falls decubs DVT PFX d/w pt and staff, d/w pt's PCP Condition: Improved - Instructions Diet, Activity, Other Instructions: f/u CBC CMP q1 week in [place] PT rehab Falls DVT PFX ortho eval in 1 week in [place] stools softeners daily constipation PFX anemia garcia as outpt (GI TEACHER ADVISOR heme f/u) Referrals: Austin Hamilton MD [Staff Physician] - Shanthi Dietrich MD [Primary Care Provider] - Disposition: CARE HOME FACILITY - Home Medications Comprehensive Discharge Medication List: Ambulatory Orders Citracal Plus Tablet 1 tab PO TID 09/15/11 Ferrex 150 Forte Capsule 1 tab PO DAILY 09/15/11 Motrin 400 mg PO BID PRN 09/15/11 Motrin 600 mg PO DAILY 09/15/11 Multivitamin 1 tab PO DAILY 09/15/11 Vitamin C 500 mg PO DAILY 09/15/11 Vitamin D3 1,000 mg PO DAILY 09/15/11
[2018-07-07 12:52] LABS: ANISOCYTOSIS 2+; MACROCYTOSIS 0; OVALOCYTE 1+; PLATELET ESTIMATE NORMAL; TARGET CELLS 1+
[2018-07-07 14:28] VITALS: BP 104/55; PULSE 89; TEMP 98.7
== END 2018-07-07 14:45 | DRG 313 ==
LOC: JER 16:42 → JERBED 06-30 00:53 → J6S 06-30 04:04
PROVIDERS: ADMIT Specialist; ATTEND Specialist
PROC: 30233N1 Transfusion of Nonautologous Red Blood Cells into Peripheral Vein, Percutaneous Approach (ICD-10-PCS; 2018-07-03)
PROC: 0QSH04Z Reposition Left Tibia with Internal Fixation Device, Open Approach (ICD-10-PCS; principal; 2018-07-04 14:30)
DX: S82.142A Displaced bicondylar fracture of left tibia, initial encounter for closed fracture (principal); W19.XXXA Unspecified fall, initial encounter; Y93.89 Activity, other specified; Y92.69 Other specified industrial and construction area as the place of occurrence of the external cause; Y99.9 Unspecified external cause status; D64.9 Anemia, unspecified
CPT/HCPCS: 36415; 36430; 71045-TC-FY; 73564-TC-LT-FY; 73718-LT; 80048; 80053; 81003; 81015; 82272; 82607; 82728; 82747; 83021; 83540; 83550; 83615; 84155; 84156; 84157; 84165; 84425; 84439; 84443; 84481; 85014; 85025; 85027; 85044; 85610; 85651; 85660; 85730; 86038; 86140; 86850; 86900; 86901; 86922; 87040; 87086; 93005; 93010; 94760; 97162-GP; 99283-25; J1644; J1756; P9038; P9058

== ENCOUNTER 2019-08-29 09:18 | Inpatient (IN) | payer OTHER ==
[2019-08-29] MEDS ORDERED: dilTIAZem HCL 125 MG/25 ML - 25 ML VIAL ONE (09:50)
[2019-08-29] MEDS ORDERED: SODIUM CHLORIDE 1,000 ML IV STA (09:54)
[2019-08-29] MEDS ORDERED: dilTIAZem HCL 50 MG/10 ML - 10 ML VIAL IVPUSH ONE ×2 (09:54→15:45)
[2019-08-29 10:28] LABS: BASO % 0.5 % (0-2.0); EOS % 1.4 % (0-4.5); HEMOGLOBIN 11.3 GM/dL (10.7-15.3); LYMPH % 16.9 % (8-40); MCH 27.7 pg (25.7-33.7); MCHC 31.3 g/dl (32.0-36.0); MEAN CELL VOLUME 88.4 fl (80-96); MEAN PLT VOLUME 10.2 fl (7.5-11.1); MONO % 5.9 % (3.8-10.2); NEUT % 75.3 % (42.8-82.8); PLATELET COUNT 166 K/MM3 (134-434); RBC 4.08 M/mm3 (3.60-5.2); RDW 15.6 % (11.6-15.6); WHITE BLOOD COUNT 4.9 K/mm3 (4.0-10.0)
[2019-08-29 10:46] LABS: INR 1.04 (0.83-1.09); PROTHROMBIN TIME (PATIENT) 12.3 SEC (9.7-13.0)
[2019-08-29 11:05] LABS: ALBUMIN 3.7 g/dl (3.4-5.0); ALK PHOS 184 U/L (45-117); ANION GAP 7 MMOL/L (8-16); BILIRUBIN,TOTAL 0.4 mg/dL (0.2-1); BLOOD UREA NITROGEN 15.2 mg/dL (7-18); CALCIUM 7.2 mg/dL (8.5-10.1); CHLORIDE 112 mmol/L (98-107); CO2 21 mmol/L (21-32); CREATININE 0.7 mg/dL (0.55-1.3); GLUCOSE,RANDOM 92 mg/dL (74-106); N-TERMINAL BNP 1651.8 pg/ml (5-125); SGOT/AST 79 U/L (15-37); SGPT/ALT 56 U/L (13-61); SODIUM 141 mmol/L (136-145); TOT PROT 7.1 g/dl (6.4-8.2)
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
--- NOTE | 2019-08-29 15:14 | EKG ---
Test Reason : Blood Pressure : / mmHG Vent. Rate : 141 BPM Atrial Rate : 144 BPM P-R Int : 000 ms QRS Dur : 086 ms QT Int : 316 ms P-R-T Axes : 000 050 027 degrees QTc Int : 484 ms POOR DATA QUALITY, INTERPRETATION MAY BE ADVERSELY AFFECTED ATRIAL FIBRILLATION WITH RAPID VENTRICULAR RESPONSE ABNORMAL ECG WHEN COMPARED WITH ECG OF 30-JUN-2018 03:06, ATRIAL FIBRILLATION HAS REPLACED SINUS RHYTHM VENT. RATE HAS INCREASED BY 69 BPM NONSPECIFIC T WAVE ABNORMALITY NOW EVIDENT IN LATERAL LEADS Confirmed by ABRAHAM LAWSON, TRUMAN ([id number]) on 08/29/2019 3:14:05 PM Referred By: Confirmed By:TRUMAN ROSARIO MD
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
[2019-08-29] MEDS ORDERED: dilTIAZem HCL 60 MG TABLET (FP) ONE (16:20)
[2019-08-29] MEDS ORDERED: ASPIRIN 81 MG CHEWABLE TABLETS ONE (16:20)
--- NOTE | 2019-08-29 16:27 | ECHO ---
Name: KAYLIE SANDS Exam:Adult Echocardiogram Study Date: 08/29/2019 03:24 PM Age: 53 yrs Height: 72 in Weight: 300 lb BSA: 2.5 m2 MMode/2D Measurements & Calculations IVSd: 1.2 cm Ao root diam: 3.4 cm LVIDd: 4.5 cm LA dimension: 3.3 cm LVIDs: 3.4 cm LVPWd: 1.4 cm LVPWs: 1.6 cm EDV(Teich): 94.4 ml ESV(Teich): 47.2 ml LVOT diam: 2.0 cm LAV (MOD-bp): 98.9 ml RV S Wisam: 16.1 cm/sec Doppler Measurements & Calculations MV E max wisam: 111.0 cm/sec Ao V2 max: 126.1 cm/sec MV A max wisam: 92.6 cm/sec Ao max P.4 mmHg MV E/A: 1.2 NONI(V,D): 2.8 cm2 MV dec time: 0.09 sec LV V1 max P.2 mmHg MR max wisam: 274.2 cm/sec LV V1 max: 114.0 cm/sec MR max P.1 mmHg TR max wisam: 217.2 cm/sec PA V2 max: 112.7 cm/sec TR max P.9 mmHg PA max P.1 mmHg Lat Peak E' Wisam: 9.7 cm/sec Lat E/e': 11.5 Procedure The study was technically difficult with many images being suboptimal in quality. Left Ventricle The left ventricular size, thickness and function are normal. The left ventricular ejection fraction is normal. Regional wall motion abnormalities cannot be excluded due to limited visualization. Right Ventricle The right ventricle is not well visualized. Atria Normal left and right atrial size and function. Mitral Valve There is mild mitral valve thickening. There is no mitral valve stenosis. There is trace mitral regur gitation. Tricuspid Valve The tricuspid valve is not well visualized. There is no tricuspid stenosis. There is trace tricuspid regurgitation. Right ventricular systolic pressure is normal. Aortic Valve The aortic valve is not well visualized. No hemodynamically significant valvular aortic stenosis. No aortic regurgitation is present. Pulmonic Valve The pulmonic valve is not well visualized. Great Vessels The aortic root is normal size. Pericardium/Pleura There is no pericardial effusion. Interpretation Summary The study was technically difficult with many images being suboptimal in quality. The left ventricular size, thickness and function are normal The left ventricular ejection fraction is normal. Regional wall motion abnormalities cannot be excluded due to limited visualization. The right ventricle is not well visualized. There is trace mitral regurgitation. There is trace tricuspid regurgitation. Right ventricular systolic pressure is normal. MD Fernando Marley 08/29/2019 04:26 PM
[2019-08-29] MEDS: ASPIRIN COATED 81 MG TABLET.EC PO SCH (16:57)
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
[2019-08-29] MEDS ORDERED: HEPARIN NA (PORCINE) 5,000 UNITS/ML 1ML VIAL SQ SCH (18:00)
[2019-08-29] MEDS: dilTIAZem HCL 60 MG TABLET (FP) PO SCH (18:22)
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
[2019-08-29] MEDS ORDERED: dilTIAZem HCL 50 MG/10 ML - 10 ML VIAL IVPUSH PRN (19:30)
[2019-08-30] MEDS ORDERED: HEPARIN NA (PORCINE) 5,000 UNITS/ML 1ML VIAL ONE (00:09)
[2019-08-30] MEDS: HEPARIN NA (PORCINE) 5,000 UNITS/ML 1ML VIAL SQ SCH ×3 (00:17→21:42)
[2019-08-30] MEDS ORDERED: dilTIAZem HCL 60 MG TABLET (FP) ONE (01:45)
[2019-08-30] MEDS: dilTIAZem HCL 60 MG TABLET (FP) PO SCH ×4 (01:50→17:37)
[2019-08-30 02:54] VITALS: BMI 34.7
[2019-08-30 07:08] LABS: BASO % 0.4 % (0-2.0); EOS % 2.6 % (0-4.5); HEMATOCRIT 30.7 % (32.4-45.2); LYMPH % 34.6 % (8-40); MCH 28.2 pg (25.7-33.7); MCHC 32.6 g/dl (32.0-36.0); MEAN CELL VOLUME 86.5 fl (80-96); MEAN PLT VOLUME 9.8 fl (7.5-11.1); NEUT % 51.4 % (42.8-82.8); PLATELET COUNT 148 K/MM3 (134-434); RBC 3.55 M/mm3 (3.60-5.2); RDW 14.8 % (11.6-15.6); WHITE BLOOD COUNT 3.1 K/mm3 (4.0-10.0)
[2019-08-30 07:18] LABS: INR 1.12 (0.83-1.09); PROTHROMBIN TIME (PATIENT) 13.2 SEC (9.7-13.0)
[2019-08-30 07:37] LABS: ALBUMIN 3.2 g/dl (3.4-5.0); BILIRUBIN,TOTAL 0.3 mg/dL (0.2-1); BLOOD UREA NITROGEN 9.8 mg/dL (7-18); CREATININE 0.5 mg/dL (0.55-1.3); MAGNESIUM 1.9 mg/dL (1.8-2.4); POTASSIUM 3.9 mmol/L (3.5-5.1)
[2019-08-30] MEDS: ASPIRIN COATED 81 MG TABLET.EC PO SCH (11:02)
--- NOTE | 2019-08-30 11:08 | PN ---
Progress Note (short form) - Note Progress Note: s: no cp sob palps dizzy Current Medications Generic Name Dose Route Start Last Admin Trade Name Freq PRN Reason Stop Dose Admin Aspirin 81 mg 08/29/19 16:00 08/30/19 11:02 Ecotrin - PO 81 mg DAILY CEDRIC Administration Diltiazem HCl 60 mg 08/29/19 18:00 08/30/19 11:02 Cardizem - PO 60 mg Q6HPO CEDRIC Administration Diltiazem HCl 5 mg 08/29/19 19:30 Cardizem Injection - IVPUSH ONCE PRN TACHYCARDIA Heparin Sodium (Porcine) 5,000 unit 08/29/19 22:00 08/30/19 00:17 Heparin - SQ 5,000 unit TID CEDRIC Administration Vital Signs Period Temp Pulse Resp BP Sys/Gandara Pulse Ox Last 24 Hr 98 F-98.4 F 90-94 101-113/56-66 97-100 nad no jvd reg s1s2 no mrg cta bl nl eff aao3 no le e/c/c abd nt nd pos bs no jaundice diaphoresis Laboratory Last Values WBC 3.1 K/mm3 (4.0-10.0) L 08/30/19 06:05 RBC 3.55 M/mm3 (3.60-5.2) L 08/30/19 06:05 Hgb 10.0 GM/dL (10.7-15.3) L 08/30/19 06:05 Hct 30.7 % (32.4-45.2) L 08/30/19 06:05 MCV 86.5 fl (80-96) 08/30/19 06:05 MCH 28.2 pg (25.7-33.7) 08/30/19 06:05 MCHC 32.6 g/dl (32.0-36.0) 08/30/19 06:05 RDW 14.8 % (11.6-15.6) 08/30/19 06:05 Plt Count 148 K/MM3 (134-434) 08/30/19 06:05 MPV 9.8 fl (7.5-11.1) 08/30/19 06:05 Absolute Neuts (auto) 1.6 K/mm3 (1.5-8.0) 08/30/19 06:05 Neutrophils % 51.4 % (42.8-82.8) D 08/30/19 06:05 Lymphocytes % 34.6 % (8-40) D 08/30/19 06:05 Monocytes % 11.0 % (3.8-10.2) H D 08/30/19 06:05 Eosinophils % 2.6 % (0-4.5) D 08/30/19 06:05 Basophils % 0.4 % (0-2.0) 08/30/19 06:05 Nucleated RBC % 0 % (0-0) 08/30/19 06:05 PT with INR 13.20 SEC (9.7-13.0) H 08/30/19 06:05 INR 1.12 (0.83-1.09) H 08/30/19 06:05 Sodium 143 mmol/L (136-145) 08/30/19 06:05 Potassium 3.9 mmol/L (3.5-5.1) 08/30/19 06:05 Chloride 114 mmol/L (98-107) H 08/30/19 06:05 Carbon Dioxide 22 mmol/L (21-32) 08/30/19 06:05 Anion Gap 6 MMOL/L (8-16) L 08/30/19 06:05 BUN 9.8 mg/dL (7-18) 08/30/19 06:05 Creatinine 0.5 mg/dL (0.55-1.3) L 08/30/19 06:05 Est GFR (CKD-EPI)AfAm 126.28 08/30/19 06:05 Est GFR (CKD-EPI)NonAf 108.96 08/30/19 06:05 Random Glucose 80 mg/dL (74-106) 08/30/19 06:05 Calcium 7.0 mg/dL (8.5-10.1) L 08/30/19 06:05 Phosphorus 4.0 mg/dL (2.5-4.9) 08/30/19 06:05 Magnesium 1.9 mg/dL (1.8-2.4) 08/30/19 06:05 Total Bilirubin 0.3 mg/dL (0.2-1) 08/30/19 06:05 AST 22 U/L (15-37) 08/30/19 06:05 ALT 37 U/L (13-61) 08/30/19 06:05 Alkaline Phosphatase 145 U/L (45-117) H 08/30/19 06:05 Creatine Kinase 196 U/L (26-192) H 08/29/19 16:10 Creatine Kinase Index 0.8 % (0.0-5.0) 08/29/19 16:10 CK-MB (CK-2) 1.6 ng/mL (0.5-3.6) 08/29/19 16:10 Troponin I < 0.02 ng/ml (0.00-0.05) 08/29/19 16:10 B-Natriuretic Peptide 1651.8 pg/ml (5-125) H 08/29/19 10:11 Total Protein 6.0 g/dl (6.4-8.2) L 08/30/19 06:05 Albumin 3.2 g/dl (3.4-5.0) L 08/30/19 06:05 TSH 3.01 uIU/ml (0.358-3.74) 08/29/19 10:11 Serum , Qual Negative 08/29/19 10:11 Stool Occult Blood Negative (NEGATIVE) 08/29/19 14:20 Blood Type A POSITIVE 08/29/19 16:10 Antibody Screen Negative 08/29/19 16:10 ecg: afib, rvr, nl qtc no ischemic changes cxr: clear lungs tele: sr now, afib with mild rvr overnight a/p:53 f hx gastric bypass, anemia here with dizzy, palps. afib, palps, dizzy: -no signs chf or acs -here with new onset symptomatic afib with rvr, feeling better after rate control. in sr now. cont dilt. -chadsvasc is 1 for female gender only so can start asa 81 qd -echo here unremarkable preop: -imaging shows ?esoph path, plan for egd. No cardiac contraindications to EGD.
--- NOTE | 2019-08-30 13:08 | PN ---
Progress Note (short form) - Note Progress Note: EGD aborted: retained liquid and food remnant in proximal esophagus. Needs Lap band adjusted. Advised Dr. Hadley.
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
[2019-08-30] MEDS ORDERED: FLU VACCINE QUAD 60 MCG/0.5 ML (MDV 19-20) IM ONE (16:33)
--- NOTE | 2019-08-30 16:43 | PN ---
Physical Exam: SUBJECTIVE: Patient seen and examined NAEON. Tele with several episodes of Afib, nonsustained Denies palpitations. Was NPO O/N. Has intermittent chronic nonproductive cough. OBJECTIVE: Vital Signs Period Temp Pulse Resp BP Sys/Gandara Pulse Ox Last 24 Hr 98 F-98.7 F 89-94 18-20 88-120/56-74 97-100 GENERAL: The patient is awake, alert, and fully oriented. No NAD HEAD: Normal with no signs of trauma. EYES: sclera anicteric, conjunctiva w/o pallor ENT: Ears normal, nares patent, moist mucous membranes. NECK: Trachea midline, full range of motion, supple. LUNGS: Breath sounds equal, clear to auscultation bilaterally, no wheezes, no crackles, no accessory muscle use. HEART: Regular rate and rhythm, S1, S2 without murmur, rub or gallop. ABDOMEN: Soft, nontender, nondistended, normoactive bowel sounds, no guarding, no rebound, no hepatosplenomegaly, no masses. Palpable LLQ subcutaneous port EXTREMITIES: 2+ pulses, warm, well-perfused, no edema. BLE hyperpigmentation NEUROLOGICAL: Normal speech, gait not observed. PSYCH: Normal mood, normal affect. SKIN: Warm, dry, normal turgor, no rashes or lesions noted Laboratory Results - last 24 hr 08/29/19 08/29/19 08/29/19 16:10 16:10 16:10 WBC RBC Hgb Hct MCV MCH MCHC RDW Plt Count MPV Absolute Neuts (auto) Neutrophils % Lymphocytes % Monocytes % Eosinophils % Basophils % Nucleated RBC % PT with INR INR Sodium Potassium Chloride Carbon Dioxide Anion Gap BUN Creatinine Est GFR (CKD-EPI)AfAm Est GFR (CKD-EPI)NonAf Random Glucose Calcium Phosphorus Magnesium Total Bilirubin AST ALT Alkaline Phosphatase Creatine Kinase 196 H 198 H Creatine Kinase Index 0.8 0.8 CK-MB (CK-2) 1.6 1.7 Troponin I < 0.02 Total Protein Albumin Blood Type A POSITIVE Antibody Screen Negative 08/30/19 08/30/19 08/30/19 06:05 06:05 06:05 WBC 3.1 L RBC 3.55 L Hgb 10.0 L Hct 30.7 L MCV 86.5 MCH 28.2 MCHC 32.6 RDW 14.8 Plt Count 148 MPV 9.8 Absolute Neuts (auto) 1.6 Neutrophils % 51.4 D Lymphocytes % 34.6 D Monocytes % 11.0 H D Eosinophils % 2.6 D Basophils % 0.4 Nucleated RBC % 0 PT with INR 13.20 H INR 1.12 H Sodium 143 Potassium 3.9 Chloride 114 H Carbon Dioxide 22 Anion Gap 6 L BUN 9.8 Creatinine 0.5 L Est GFR (CKD-EPI)AfAm 126.28 Est GFR (CKD-EPI)NonAf 108.96 Random Glucose 80 Calcium 7.0 L Phosphorus 4.0 Magnesium 1.9 Total Bilirubin 0.3 AST 22 ALT 37 Alkaline Phosphatase 145 H Creatine Kinase Creatine Kinase Index CK-MB (CK-2) Troponin I Total Protein 6.0 L Albumin 3.2 L Blood Type Antibody Screen Active Medications Generic Name Dose Route Start Last Admin Trade Name Freq PRN Reason Stop Dose Admin Aspirin 81 mg 08/29/19 16:00 08/30/19 11:02 Ecotrin - PO 81 mg DAILY CEDRIC Administration Diltiazem HCl 60 mg 08/29/19 18:00 08/30/19 11:02 Cardizem - PO 60 mg Q6HPO CEDRIC Administration Diltiazem HCl 5 mg 08/29/19 19:30 Cardizem Injection - IVPUSH ONCE PRN TACHYCARDIA Heparin Sodium (Porcine) 5,000 unit 08/29/19 22:00 08/30/19 14:21 Heparin - SQ 5,000 unit TID CEDRIC Administration ASSESSMENT/PLAN: 53F with history of Obesity, Gastric Bypass(~2001), Gastric Lap Band(~2008), iron deficiency anemia (receiving iron transfusions, last transfusion was month ) presented with complaint of palpitations with associated dizziness and shortness of breath. Found to be in Afib w/ AVR(140 bpm). Rate controlled with Diltiazem. Only started on ASA 81mg d/t CHADVASC ~1. #New- onset Afib --unknown etiol > EKG(08/29/19): new- onset Afib at 141BPM > Tropinin 0.02, 0.2 > Echo(08/29/19): suboptimal quality, grossly normal LV size/thickness/function > TSH 3.01 - Cardiology Consult (Dr. Larson) - Rate control with Diltiazem 60mg PO Q6 hours., Diltiazem 5mg IV push as necessary for breathrough tachycardia. - Aspirin 81mg PO daily. CHADSVASC 1, no additional anticoagulation indicated. - cw Cardiac monitoring #Dizziness, ?syncopal episode > CT H neg - Neurology Consult(Dr. Robin): --Unlikely to be seizure or tia. --CT head is normal and neuro exam is unremarkable --Plan: no further recommendation from neuro point of view -Fall precautions #Transaminitis --likely 2/2 fatty liver > RUQ US: hepatomegaly and fatty liver > Hep serology --pending - Counselled regarding excessive alcohol consumption #Chronic Regurgitation --possibly 2/2 to gastric lap band #Esophageal dilation --possibly 2/2 to gastric lap band > CT A/P: dilated esophagus w/ air-fluid lvl. Right renal cyst 2.7cm. T7 hemangioma - GI Consult(Digornio): -- EGD(08/30/19): retained food/liquid in esophag, rec Bariatric Surgery consult(Artuso) - Bariatric Surgery Consult(Artuso): -- recs are pending - dysphagia diet for now FEN - dysphagia diet Prophylaxis - Heparin 5000units subq TID Disposition - Tele - full code Visit type - Emergency Visit Emergency Visit: No - New Patient This patient is new to me today: No - Critical Care Critical Care patient: No ATTENDING PHYSICIAN STATEMENT I saw and evaluated the patient. I reviewed the resident's note and discussed the case with the resident. I agree with the resident's findings and plan as documented. SUBJECTIVE: OBJECTIVE: ASSESSMENT AND PLAN:
--- NOTE | 2019-08-30 18:58 | PN ---
Progress Note (short form) - Note Progress Note: Bariatric Surgery Consult Asked to see this 53 y.o. female well-known to me. Pt admitted with dizziness and new onset A-Fib. Ct showed dilated entire esophagus, prompting upper endoscopy by GI. EGD aborted secondary to retained food particles above the band. Pt reports a very tight band for last few months, worse at night with food particles and Acid Reflux. PSHx- Lap-Band Open Cholecystectomy Afebrile; VSS P/E- Gen- Awake, alert, NAD Abd- +obese; soft, non-tender on palpation Port palpated in sub-Q position in upper midline Ext- no swelling, no edema Pt ambulating Tolerating soft food with some difficulty WBC-3.1 H/H-07/11.7 Procedure: Under sterile conditions, Port accessed in upper midline with 22gauge needle. 6 cc removed of 7.4 cc (leaving 1.4 cc remaining) P- If pt tolerates soft/chopped food, may advance to regular diet tomorrow Pt to follow-up with me in early/mid September for Barium Swallow to assess band position. If pt not significantly improved with Band loosening, please contact me further for follow-up Continue as per Medical/team
--- NOTE | 2019-08-30 19:06 | PROC ---
Procedure Note Procedure: Bariatric Surgery Procedure Pre-procedure Dx: Vomiting secondary to tight band Post-procrdure Dx: vomiting secondary to tight band Prcedure: Gastric Band Adjustment Details: Alcohol prep was placed over upper midline in epigastrium area over sub-Q Port. #22 gauge needle was used to access sub-Q port. 6 cc of NS was withdrawn from Band, leaving 1.4 cc remaining. Band-aid applied to area.
--- NOTE | 2019-08-30 19:28 | PN ---
Teaching Attending Note Name of Resident: Kingston Ribeiro ATTENDING PHYSICIAN STATEMENT I saw and evaluated the patient. I reviewed the resident's note and discussed the case with the resident. I agree with the resident's findings and plan as documented. SUBJECTIVE: Patient is comfortable with no acute distress Vital Signs Temperature 97.9 F 08/30/19 17:00 Pulse Rate 95 H 08/30/19 17:00 Respiratory Rate 20 08/30/19 17:00 Blood Pressure 102/66 08/30/19 17:00 O2 Sat by Pulse Oximetry (%) 100 08/30/19 13:48 GENERAL: The patient is awake, alert, and fully oriented, in no acute distress. HEAD: Normal with no signs of trauma. EYES: PERRL, extraocular movements intact, sclera anicteric, conjunctiva clear. ENT: Ears normal, oropharynx clear without exudates, moist mucous membranes. NECK: Trachea midline, full range of motion, supple. LUNGS: Breath sounds equal, clear to auscultation bilaterally, no wheezes, no crackles, no accessory muscle use. HEART: Regular rate and rhythm, S1, S2 without murmur, rub or gallop. ABDOMEN: Soft, nontender, nondistended, normoactive bowel sounds, no guarding, no rebound, no hepatosplenomegaly, no masses. EXTREMITIES: 2+ pulses, warm, well-perfused, no edema. NEUROLOGICAL: Cranial nerves II through XII grossly intact. Normal speech, gait not observed. PSYCH: Normal mood, normal affect. SKIN: Warm, dry, normal turgor, no rashes or lesions noted CBCD WBC 3.1 K/mm3 (4.0-10.0) L 08/30/19 06:05 RBC 3.55 M/mm3 (3.60-5.2) L 08/30/19 06:05 Hgb 10.0 GM/dL (10.7-15.3) L 08/30/19 06:05 Hct 30.7 % (32.4-45.2) L 08/30/19 06:05 MCV 86.5 fl (80-96) 08/30/19 06:05 MCHC 32.6 g/dl (32.0-36.0) 08/30/19 06:05 RDW 14.8 % (11.6-15.6) 08/30/19 06:05 Plt Count 148 K/MM3 (134-434) 08/30/19 06:05 MPV 9.8 fl (7.5-11.1) 08/30/19 06:05 CMP Sodium 143 mmol/L (136-145) 08/30/19 06:05 Potassium 3.9 mmol/L (3.5-5.1) 08/30/19 06:05 Chloride 114 mmol/L (98-107) H 08/30/19 06:05 Carbon Dioxide 22 mmol/L (21-32) 08/30/19 06:05 Anion Gap 6 MMOL/L (8-16) L 08/30/19 06:05 BUN 9.8 mg/dL (7-18) 08/30/19 06:05 Creatinine 0.5 mg/dL (0.55-1.3) L 08/30/19 06:05 Random Glucose 80 mg/dL (74-106) 08/30/19 06:05 Calcium 7.0 mg/dL (8.5-10.1) L 08/30/19 06:05 Total Bilirubin 0.3 mg/dL (0.2-1) 08/30/19 06:05 AST 22 U/L (15-37) 08/30/19 06:05 ALT 37 U/L (13-61) 08/30/19 06:05 Alkaline Phosphatase 145 U/L (45-117) H 08/30/19 06:05 Total Protein 6.0 g/dl (6.4-8.2) L 08/30/19 06:05 Albumin 3.2 g/dl (3.4-5.0) L 08/30/19 06:05 CARDIAC ENZYMES Creatine Kinase 196 U/L (26-192) H 08/29/19 16:10 Troponin I < 0.02 ng/ml (0.00-0.05) 08/29/19 16:10 Home Medications Medication Instructions Recorded Citracal Plus Tablet 1 tab PO TID 09/15/11 Ferrex 150 Forte Capsule 1 tab PO DAILY 09/15/11 Multivitamin 1 tab PO DAILY 09/15/11 Vitamin C 500 mg PO DAILY 09/15/11 Vitamin D3 1,000 mg PO DAILY 09/15/11 Acetaminophen [Tylenol .Regular 650 mg PO Q6H PRN tablet 07/07/18 Strength -] Docusate Sodium [Colace -] 300 mg PO HS capsule 07/07/18 Heparin - 5,000 unit SQ BID vial 07/07/18 Mag Hydrox/Al Hydrox/Simeth 30 ml PO Q6H PRN cup 07/07/18 [Mylanta Oral Suspension -] Pantoprazole Sodium [Protonix -] 20 mg PO DAILY tablet.ec 07/07/18 Polyethylene Glycol 3350 [Miralax 17 gm PO DAILY bottle 07/07/18 119 gm Btl -] oxyCODONE HCL [Roxicodone -] 5 mg PO Q6H PRN tablet MDD 20 mg 07/07/18 Current Medications Generic Name Dose Route Start Last Admin Trade Name Freq PRN Reason Stop Dose Admin Aspirin 81 mg 08/29/19 16:00 08/30/19 11:02 Ecotrin - PO 81 mg DAILY CEDRIC Administration Diltiazem HCl 60 mg 08/29/19 18:00 08/30/19 17:37 Cardizem - PO 60 mg Q6HPO CEDRIC Administration Diltiazem HCl 5 mg 08/29/19 19:30 Cardizem Injection - IVPUSH ONCE PRN TACHYCARDIA Heparin Sodium (Porcine) 5,000 unit 08/29/19 22:00 08/30/19 14:21 Heparin - SQ 5,000 unit TID CEDRIC Administration CT of the head/chest negative. CT of the abdomen and pelvis: s/p gastric banding with significant dilatation of the entire esophagus and air fluid level. gastro.is recommended. ASSESSMENT AND PLAN: Patient is a 53 year old female with PMHx of gastric bypass ( iron deficiency anemia on iron transfusions) presented with palpitations. #new onset Afib with rvr : chadvasc 1 , on ECotrin 81mg daily, cardio consulted dr chavez # hx of anemia: will monitor # Gastric bypass/with gastric banding: as per GI, s/p EGD as per GI: retained liquid and food remnant in proximal esophagus. Needs Lap band adjusted. is her bariatric surgeon, consult is in place. DVt Px: early ambulations
[2019-08-31] MEDS: dilTIAZem HCL 60 MG TABLET (FP) PO SCH ×2 (01:06→06:23)
[2019-08-31] MEDS: HEPARIN NA (PORCINE) 5,000 UNITS/ML 1ML VIAL SQ SCH ×2 (06:23→15:26)
[2019-08-31 06:44] LABS: HEMATOCRIT 35.4 % (32.4-45.2); HEMOGLOBIN 11.2 GM/dL (10.7-15.3); MCH 27.7 pg (25.7-33.7); MCHC 31.6 g/dl (32.0-36.0); MEAN CELL VOLUME 87.7 fl (80-96); MEAN PLT VOLUME 9.7 fl (7.5-11.1); PLATELET COUNT 170 K/MM3 (134-434); RBC 4.04 M/mm3 (3.60-5.2); RDW 15.4 % (11.6-15.6); WHITE BLOOD COUNT 3.5 K/mm3 (4.0-10.0)
[2019-08-31 07:12] LABS: BLOOD UREA NITROGEN 7.5 mg/dL (7-18); CALCIUM 7.7 mg/dL (8.5-10.1); CREATININE 0.7 mg/dL (0.55-1.3); MAGNESIUM 2.1 mg/dL (1.8-2.4); PHOSPHOROUS 4.1 mg/dL (2.5-4.9); POTASSIUM 4.3 mmol/L (3.5-5.1)
--- NOTE | 2019-08-31 09:14 | PN ---
Progress Note, Physician Chief Complaint: denies cp, sob dizziness or palps TELE: AFL - Current Medication List Current Medications: Active Medications Aspirin (Ecotrin -) 81 mg PO DAILY [facility] Last Admin: 08/30/19 11:02 Dose: 81 mg Diltiazem HCl (Cardizem -) 60 mg PO Q6HPO [facility] Last Admin: 08/31/19 06:23 Dose: 60 mg Diltiazem HCl (Cardizem Injection -) 5 mg IVPUSH ONCE PRN PRN Reason: TACHYCARDIA Heparin Sodium (Porcine) (Heparin -) 5,000 unit SQ TID [facility] Last Admin: 08/31/19 06:23 Dose: 5,000 unit - Objective Vital Signs: Vital Signs Temperature 97.9 F 08/31/19 01:00 Pulse Rate 94 H 08/31/19 05:00 Respiratory Rate 20 08/31/19 05:00 Blood Pressure 99/67 08/31/19 05:00 O2 Sat by Pulse Oximetry (%) 100 08/30/19 13:48 Constitutional: Yes: No Distress Cardiovascular: Yes: Regular Rate and Rhythm Respiratory: Yes: CTA Bilaterally Gastrointestinal: Yes: Soft Edema: No Neurological: Yes: Alert, Oriented ...Motor Strength: WNL Labs: CBC, BMP 08/31/19 06:00 08/31/19 06:00 INR, PTT INR 1.12 (0.83-1.09) H 08/30/19 06:05 Laboratory Tests 08/29/19 08/29/19 08/29/19 10:11 14:20 16:10 WBC Hgb Plt Count Sodium Potassium Creatinine Magnesium Troponin I < 0.02 < 0.02 Stool Occult Blood Negative 08/31/19 08/31/19 06:00 06:00 WBC 3.5 L Hgb 11.2 Plt Count 170 Sodium 142 Potassium 4.3 Creatinine 0.7 Magnesium 2.1 Troponin I Stool Occult Blood Assessment/Plan a/p:53 f hx gastric bypass, anemia here with dizzy, palps. afib, palps, dizzy: -no signs chf or acs -here with new onset symptomatic afib with rvr, feeling better after rate control. PAF. -chadsvasc is 1 for female gender only so can start asa 81 qd -echo here unremarkable -Convert to extended release Cardizem today preop: -imaging shows ?esoph path, plan for egd. No cardiac contraindications to EGD.
[2019-08-31] MEDS ORDERED: SODIUM CHLORIDE 250 ML IV STA (09:57)
[2019-08-31] MEDS: ASPIRIN COATED 81 MG TABLET.EC PO SCH (10:02)
--- NOTE | 2019-08-31 10:46 | PN ---
Progress Note (short form) - Note Progress Note: 53 year old female history of Anemia. Patient was driving and she felt dizzy and sob. She slowed her car and next thing she [place] Patient was found to have atrial fibrillation. She is feeling better now. No focal neurological syptoms. She has no history of seizure, stroke or syncope in past. There was no tongue bite or incontinence . no new syptoms and she is feeling better. NEUROLOGICAL EXAMIANTION Alert oriented x 3, speech is normal, afebrile vss eomi, pupils reactive no face asymmetry moving all ext sensation is normal ct head is normal Assessment/Plan 53 year old female history of anemia, presented with new onset atrial fibrillation and syncope. Unlikely to be seizure or tia. ct head is normal and neuro exam is unremarkable. Plan: No further testing from neuro point of view - continue work up and treatment as per finish filer Thanking you so much Isaac Robin MD
[2019-08-31] MEDS ORDERED: SODIUM CHLORIDE 500 ML IV STA (14:54)
--- NOTE | 2019-08-31 16:16 | PN ---
Teaching Attending Note Name of Resident: Kingston Ribeiro ATTENDING PHYSICIAN STATEMENT I saw and evaluated the patient. I reviewed the resident's note and discussed the case with the resident. I agree with the resident's findings and plan as documented. SUBJECTIVE: Patient is comfortable with no acute distress, no nausea or vomiting. Vital Signs Temperature 97.7 F 08/31/19 17:11 Pulse Rate 93 H 08/31/19 17:11 Respiratory Rate 20 08/31/19 17:11 Blood Pressure 112/67 08/31/19 17:11 O2 Sat by Pulse Oximetry (%) 100 08/31/19 09:00 GENERAL: The patient is awake, alert, and fully oriented, in no acute distress. HEAD: Normal with no signs of trauma. EYES: PERRL, extraocular movements intact, sclera anicteric, conjunctiva clear. ENT: Ears normal, oropharynx clear without exudates, moist mucous membranes. NECK: Trachea midline, full range of motion, supple. LUNGS: Breath sounds equal, clear to auscultation bilaterally, no wheezes, no crackles, no accessory muscle use. HEART: Regular rate and rhythm, S1, S2 without murmur, rub or gallop. ABDOMEN: Soft, nontender, nondistended, normoactive bowel sounds, no guarding, no rebound, no hepatosplenomegaly, no masses. EXTREMITIES: 2+ pulses, warm, well-perfused, no edema. NEUROLOGICAL: Cranial nerves II through XII grossly intact. Normal speech, gait not observed. PSYCH: Normal mood, normal affect. SKIN: Warm, dry, normal turgor, no rashes or lesions noted CBCD WBC 3.5 K/mm3 (4.0-10.0) L 08/31/19 06:00 RBC 4.04 M/mm3 (3.60-5.2) 08/31/19 06:00 Hgb 11.2 GM/dL (10.7-15.3) 08/31/19 06:00 Hct 35.4 % (32.4-45.2) D 08/31/19 06:00 MCV 87.7 fl (80-96) 08/31/19 06:00 MCHC 31.6 g/dl (32.0-36.0) L 08/31/19 06:00 RDW 15.4 % (11.6-15.6) 08/31/19 06:00 Plt Count 170 K/MM3 (134-434) 08/31/19 06:00 MPV 9.7 fl (7.5-11.1) 08/31/19 06:00 CMP Sodium 142 mmol/L (136-145) 08/31/19 06:00 Potassium 4.3 mmol/L (3.5-5.1) 08/31/19 06:00 Chloride 112 mmol/L (98-107) H 08/31/19 06:00 Carbon Dioxide 26 mmol/L (21-32) 08/31/19 06:00 Anion Gap 5 MMOL/L (8-16) L 08/31/19 06:00 BUN 7.5 mg/dL (7-18) 08/31/19 06:00 Creatinine 0.7 mg/dL (0.55-1.3) 08/31/19 06:00 Random Glucose 87 mg/dL (74-106) 08/31/19 06:00 Calcium 7.7 mg/dL (8.5-10.1) L 08/31/19 06:00 Total Bilirubin 0.3 mg/dL (0.2-1) 08/30/19 06:05 AST 22 U/L (15-37) 08/30/19 06:05 ALT 37 U/L (13-61) 08/30/19 06:05 Alkaline Phosphatase 145 U/L (45-117) H 08/30/19 06:05 Total Protein 6.0 g/dl (6.4-8.2) L 08/30/19 06:05 Albumin 3.2 g/dl (3.4-5.0) L 08/30/19 06:05 CARDIAC ENZYMES Creatine Kinase 196 U/L (26-192) H 08/29/19 16:10 Troponin I < 0.02 ng/ml (0.00-0.05) 08/29/19 16:10 Current Medications Generic Name Dose Route Start Last Admin Trade Name Freq PRN Reason Stop Dose Admin Aspirin 81 mg 08/29/19 16:00 08/31/19 10:02 Ecotrin - PO 81 mg DAILY CEDRIC Administration Diltiazem HCl 5 mg 08/29/19 19:30 Cardizem Injection - IVPUSH ONCE PRN TACHYCARDIA Diltiazem HCl 120 mg 08/31/19 10:00 08/31/19 10:03 Cardizem Cd - PO 120 mg DAILY CEDRIC Administration Heparin Sodium (Porcine) 5,000 unit 08/29/19 22:00 08/31/19 15:26 Heparin - SQ 5,000 unit TID CEDRIC Administration Home Medications Medication Instructions Recorded Aspirin Coated [Ecotrin -] 81 mg PO DAILY 30 Days #30 08/31/19 tablet.ec Diltiazem Cd [Cardizem Cd -] 120 mg PO DAILY 30 Days #30 08/31/19 cap.cd.24h Ergocalciferol (Vitamin D2) 50,000 unit PO Q7D 08/31/19 [Vitamin D2] CT of the head/chest negative. CT of the abdomen and pelvis: s/p gastric banding with significant dilatation of the entire esophagus and air fluid level. gastro.is recommended. ASSESSMENT AND PLAN: Patient is a 53 year old female with PMHx of gastric bypass ( iron deficiency anemia on iron transfusions) presented with palpitations. #P-Afib rate is controlled now : chadvasc 1 , on ECotrin 81mg daily, Diltiazem 120mg po daily follow up with cardio Francescone within a week period, neuro was consulted dr Robin ; as per neuro no further testing needed. # hx of anemia: follow up with # Gastric bypass/with gastric banding: as per GI, s/p EGD as per GI: retained liquid and food remnant in proximal esophagus. Needs Lap band adjusted. is her bariatric surgeon follow up with him in a week period. s/p Gastric Band Adjustment by Dr Ma Discharge patient home
--- NOTE | 2019-08-31 16:33 | PN ---
Progress Note (short form) - Note Progress Note: Patient feels better after lap band adjusted Outpatient GI follow-up. Gave patient my card Care per primary team Recall as needed
[2019-08-31 17:12] VITALS: BP 112/67; PULSE 93; TEMP 97.7
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
== END 2019-08-31 17:27 | disposition home or self-care (01) | DRG 951 ==
LOC: JER 09:18 → JERBED 11:11 → J4W 08-30 02:23
PROVIDERS: ADMIT Internal Medicine; ATTEND Internal Medicine
PROC: 0DW63CZ Revision of Extraluminal Device in Stomach, Percutaneous Approach (ICD-10-PCS; 2019-08-30)
PROC: 0DJ08ZZ Inspection of Upper Intestinal Tract, Via Natural or Artificial Opening Endoscopic (ICD-10-PCS; principal; 2019-08-30 12:00)
DX: I48.91 Unspecified atrial fibrillation (principal); R06.02 Shortness of breath; R42 Dizziness and giddiness; D50.9 Iron deficiency anemia, unspecified; K22.8 Other specified diseases of esophagus; E66.9 Obesity, unspecified; Z68.34 Body mass index [BMI] 34.0-34.9, adult; I87.2 Venous insufficiency (chronic) (peripheral); R94.5 Abnormal results of liver function studies; K76.0 Fatty (change of) liver, not elsewhere classified; N28.1 Cyst of kidney, acquired; D18.09 Hemangioma of other sites; Z98.84 Bariatric surgery status; Z45.89 Encounter for adjustment and management of other implanted devices; R11.10 Vomiting, unspecified; D64.9 Anemia, unspecified
CPT/HCPCS: 36415; 70450-TC; 71045-TC-FY; 71260-TC; 72125-TC; 74177-TC; 76700-TC; 80048; 80053; 80074; 82272; 82550; 82553; 83735; 83880; 84100; 84443; 84484; 84703; 85025; 85027; 85610; 86317; 86850; 86900; 86901; 93005; 93010; 93306-TC; 99285-25; G0008; J1644; J7030; Q2036; Q9967

== ENCOUNTER → 2019-11-01 | Day surgery (SDC) | payer OTHER ==
[2019-10-31 09:46] VITALS: BMI 42.3
[2019-11-01 12:46] VITALS: TEMP 97.3
[2019-11-01 13:48] VITALS: BP 120/68; PULSE 92
--- NOTE | 2019-11-02 16:36 | PATH ---
Surgical Pathology Report Patient Name: KAYLIE SANDS [facility]. Rec. #: [id number] /Age/Gender: 1965 (Age: 54) / F Account: [id number] Location: ASU-ENDOSCOPY Taken: 11/01/2019 Received: 11/01/2019 Reported: 11/02/2019 Physicians: Miles Pastor D.O. Specimen(s) Received A: CECUM POLYP #1 B: RIGHT COLON POLYP C: RECTAL POLYP C D: DISTAL RECTAL SUBMUCOSAL NODULE Clinical History Screening colonoscopy Postoperative diagnosis: Colon polyps, rectal diverticulum, submucosal nodule Final Diagnosis A. Cecum polyp #1, biopsy: Tubular adenoma. B. Colon, right, polyp, polypectomy: Tubular adenoma. C. Rectal polyp, polypectomy: Hyperplastic polyp. D. Distal rectal submucosal nodule, biopsy: Polypoid colonic mucosa with small lymphoid aggregates AND minute fragment of fibroadipose tissue suggestive of submucosal lipoma. See comment. Comment: Deeper levels have been examined. Suggest clinical and endoscopic correlation. Electronically Signed Erica Myrick M.D. Gross Description A. Received in formalin, labeled "cecum polyp #1" is a castro, irregular portion of soft tissue measuring 0.3 cm. in greatest dimension. The specimen is submitted in toto in one cassette. B. Received in formalin, labeled "right colon polyp" is a castro, irregular portion of soft tissue measuring 0.4 cm. in greatest dimension. The specimen is submitted in toto in one cassette. C. Received in formalin, labeled "rectal polyp" is a castro, irregular portion of soft tissue measuring 0.6 cm. in greatest dimension. The specimen is submitted in toto in one cassette. D. Received in formalin, labeled "distal rectal submucosal nodule" are 3 castro, irregular portions of soft tissue ranging from 0.3-0.7 cm. in greatest dimension. The specimens are submitted in toto in one cassette. DL/11/01/2019 saudi/11/01/2019
== END | disposition home or self-care (01) ==
LOC: JASU-ENDO 10:39
PROVIDERS: ATTEND Internal Medicine Gastroenterology
PROC: 0DBP8ZX Excision of Rectum, Via Natural or Artificial Opening Endoscopic, Diagnostic (ICD-10-PCS; 2019-11-01)
PROC: 0DBH8ZX Excision of Cecum, Via Natural or Artificial Opening Endoscopic, Diagnostic (ICD-10-PCS; 2019-11-01)
PROC: 0DBH8ZX Excision of Cecum, Via Natural or Artificial Opening Endoscopic, Diagnostic (ICD-10-PCS; 2019-11-01)
PROC: 0DBP8ZX Excision of Rectum, Via Natural or Artificial Opening Endoscopic, Diagnostic (ICD-10-PCS; 2019-11-01)
PROC: 0DBK8ZX Excision of Ascending Colon, Via Natural or Artificial Opening Endoscopic, Diagnostic (ICD-10-PCS; principal; 2019-11-01 11:45)
DX: Z12.11 Encounter for screening for malignant neoplasm of colon (principal); D12.0 Benign neoplasm of cecum; D12.2 Benign neoplasm of ascending colon; D12.8 Benign neoplasm of rectum; K62.9 Disease of anus and rectum, unspecified
CPT/HCPCS: 88305-TC

== ENCOUNTER 2019-11-08 08:47 | Day surgery (SDC) | payer OTHER ==
[2019-11-07 14:00] VITALS: BMI 42.3
[2019-11-08 10:19] VITALS: TEMP 97.8
[2019-11-08 11:28] VITALS: BP 112/70; PULSE 88
--- NOTE | 2019-11-09 16:03 | PATH ---
Surgical Pathology Report Patient Name: KAYLIE SANDS [facility]. Rec. #: [id number] /Age/Gender: 1965 (Age: 54) / F Account: [id number] Location: U-ENDOSCOPY Taken: 11/08/2019 Received: 11/08/2019 Reported: 11/09/2019 Physicians: Miles Pastor D.O. Specimen(s) Received A: GASTROENTERIC ANASTOMOSIS B: GASTRIC POLYP Clinical History Abdominal pain, screening Postoperative diagnosis: Gastritis, gastric polyp Final Diagnosis A. GASTROENTERIC ANASTOMOSIS, BIOPSY: SMALL BOWEL AND GASTRIC MUCOSA WITH MODERATE CHRONIC INFLAMMATION AND MODERATE CHRONIC GASTRITIS. FOCAL DILATED GASTRIC GLANDS IDENTIFIED. IMMUNOHISTOCHEMICAL STAIN FOR H. PYLORI IS NEGATIVE. B. GASTRIC POLYP, BIOPSY: POLYPOID GASTRIC BODY MUCOSA WITH MILD CHRONIC GASTRITIS. IMMUNOHISTOCHEMICAL STAIN FOR H. PYLORI IS NEGATIVE. Positive and negative controls (internal if applicable) show appropriate results. Electronically Signed Erica Myrick M.D. Gross Description A. Received in formalin, labeled "biopsy gastroenteric anastomosis" are 4 castro, irregular portions of soft tissue ranging from 0.1-0.4 cm. in greatest dimension. The specimens are submitted in toto in one cassette. B. Received in formalin, labeled "biopsy gastric polyp" are 3 castro, irregular portions of soft tissue ranging from 0.1-0.3 cm. in greatest dimension. The specimens are submitted in toto in one cassette. DL/11/08/2019 saudi/11/08/2019
== END 2019-11-08 11:10 | disposition home or self-care (01) ==
LOC: JASU-ENDO 08:47
PROVIDERS: ATTEND Internal Medicine Gastroenterology
PROC: 0DB68ZX Excision of Stomach, Via Natural or Artificial Opening Endoscopic, Diagnostic (ICD-10-PCS; principal; 2019-11-08 09:45)
DX: R13.10 Dysphagia, unspecified (principal); K31.7 Polyp of stomach and duodenum; K44.9 Diaphragmatic hernia without obstruction or gangrene; Z98.84 Bariatric surgery status
CPT/HCPCS: 88305-TC; 88342-TC